=== PATIENT | female | born 1955 | race Caucasian/White ===

== ENCOUNTER 2016-12-05 14:01 | Emergency (ER) | payer OTHER ==
[~2016-12-05] VITALS: Ht 157.5 cm; Wt 56.7 kg
[~2016-12-05 14:01] MED LIST: DIAZ5TAB PO
[2016-12-05] MEDS ORDERED: FENTANYL PF 100 MCG/2 ML VIAL. IV ONE (14:30)
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
--- NOTE | 2016-12-05 15:10 | EKG ---
[facility] [address] [place] [address] Test Date: 2016-12-05 Test Time: 14:15:12 Pat Name: MARIELY WALTER Department: Room: Gender: F [employer] Supervisor: : 1955 Requested By: Tai CARROLL Order Number: [id number] Reading MD: Measurements Intervals [place] Rate: 90 P: 52 WV: 180 QRS: 17 QRSD: 82 T: 41 QT: 376 QTc: 464 Interpretive Statements SINUS RHYTHM RI6.01 Unconfirmed report No previous ECG available for comparison
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
[2016-12-05] MEDS ORDERED: LIDOCAINE 1%/EPI 1:100,000 20 ML VIAL. IJ ONE (15:45)
[2016-12-05] MEDS ORDERED: KETOROLAC TROMETHAMINE 30 MG/ML SYRINGE. IV ONE (15:45)
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
[2016-12-05 16:30] VITALS: BP 129/73
== END 2016-12-05 16:47 | disposition home or self-care (01) ==
LOC: ER 14:01
DX: S01.511A Laceration without foreign body of lip, initial encounter (principal); S09.90XA Unspecified injury of head, initial encounter; S02.401A Maxillary fracture, unspecified side, initial encounter for closed fracture; R04.0 Epistaxis; M25.561 Pain in right knee; M25.562 Pain in left knee; F17.210 Nicotine dependence, cigarettes, uncomplicated; F15.10 Other stimulant abuse, uncomplicated; V47.5XXA Car driver injured in collision with fixed or stationary object in traffic accident, initial encounter; Y93.I9 Activity, other involving external motion; Y92.410 Unspecified street and highway as the place of occurrence of the external cause; Y99.8 Other external cause status
CPT/HCPCS: 12013; 70450; 70486; 73564; 93005; 96374; 96375; 99284; J1885; J3010; J3490

== ENCOUNTER 2019-09-07 05:37 | Emergency (ER) | payer SELFPAY ==
[~2019-09-07] VITALS: Ht 157.5 cm; Wt 50.3 kg
[~2019-09-07 05:37] MED LIST changes: +ALBU2.5V8 IH; +AMOX1TAB11 PO; +ASPI325T8 PO; +ATOR10TA60 PO; +BENZ100C PO; +CARV3.123 PO; +GUAI120L35 PO; +LISI-338 PO; +METO-239 PO
--- NOTE | 2019-09-07 06:17 | PHYS DOC ---
Past Medical History Past Medical History: CHF Past Surgical History: Tubal ligation, Other Additional Past Surgical Histo: ANKLE SURGERY Alcohol Use: None Drug Use: None Adult General Chief Complaint Chief Complaint: ABDOMINAL PAIN HPI HPI Patient is a 64 year old female patient with history of CHF, dyslipidemia and hypertension who presents with pain of abdominal pain. Patient complaining of right lower quadrant pain since yesterday afternoon as a constant and sharp pain with radiation. Cardiac arrhythmia associated nausea and anorexia. Patient denies fever and chills, diarrhea and constipation, urinary symptom. Patient stated the pain getting better with passing gas and had a bowel movement this morning with improvement of the pain. Patient rated her pain 6/10. Patient states she has had intermittent episodes of the same pain for 1 year. Review of Systems Review of Systems Constitutional: Denies fever or chills [] Eyes: Denies change in visual acuity, redness, or eye pain [] HENT: Denies nasal congestion or sore throat [] Respiratory: Denies cough or shortness of breath [] Cardiovascular: No additional information not addressed in HPI [] GI: Reports abdominal pain, nausea, denies vomiting, bloody stools or diarrhea [] : Denies dysuria or hematuria [] Musculoskeletal: Denies back pain or joint pain [] Integument: Denies rash or skin lesions [] Neurologic: Denies headache, focal weakness or sensory changes [] Endocrine: Denies polyuria or polydipsia [] All other systems were reviewed and found to be within normal limits, except as documented in this note. Current Medications Current Medications Current Medications Medications (Trade) Dose Ordered Sig/[facility] Start Time Stop Time Status Last Admin Dose Admin Fentanyl Citrate (Fentanyl 2ml Vial) 50 mcg 1X ONCE 09/07/19 07:15 09/07/19 07:16 DC Ketorolac Tromethamine (Toradol 30mg Vial) 30 mg 1X ONCE 09/07/19 06:30 09/07/19 06:31 DC 09/07/19 06:34 30 MG Ondansetron HCl (Zofran) 4 mg 1X ONCE 09/07/19 06:30 09/07/19 06:31 DC 09/07/19 06:34 4 MG Sodium Chloride 500 ml @ 500 mls/hr 1X ONCE 09/07/19 06:30 09/07/19 07:29 DC 09/07/19 06:35 500 MLS/HR Allergies Allergies Allergies Coded Allergies Type Severity Reaction Last Updated Verified No Known Drug Allergies 10/15/13 No Physical Exam Physical Exam Constitutional: Well developed, well nourished, mild distress, non-toxic appearance. [] HENT: Normocephalic, atraumatic, dry oral mucosa Eyes: PERRLA, EOMI, conjunctiva normal, no discharge. [] Neck: Normal range of motion, no tenderness, supple, no stridor. [] Cardiovascular:Heart rate regular rhythm, systolic murmur [] Lungs & Thorax: Bilateral breath sounds clear to auscultation [] Abdomen: Bowel sounds normal, soft, no tenderness, no masses, no pulsatile masses. [] Skin: Warm, dry, no erythema, no rash. [] Back: No tenderness, no CVA tenderness. [] Extremities: No tenderness, no cyanosis, no clubbing, ROM intact, no edema. [] Neurologic: Alert and oriented X 3, no focal deficits noted. [] Psychologic: Affect normal, judgement normal, mood normal. [] Current Patient Data Vital Signs Vital Signs Date Time Temp Pulse Resp B/P (MAP) Pulse Ox O2 Delivery O2 Flow Rate FiO2 09/07/19 08:15 69 16 107/70 (82) 98 Room Air 09/07/19 05:50 98.0 98.0 Lab Values Laboratory Tests Test 09/07/19 05:43 09/07/19 05:55 09/07/19 07:05 Urine Collection Type Void Urine Color Yellow Urine Clarity Clear Urine pH 5.0 Urine Specific [place] >=1.030 Urine Protein Negative mg/dL (NEG-TRACE) Urine Glucose (UA) Negative mg/dL (NEG) Urine Ketones (Stick) Negative mg/dL (NEG) Urine Blood Negative (NEG) Urine Nitrite Negative (NEG) Urine Bilirubin Negative (NEG) Urine Urobilinogen Dipstick 0.2 mg/dL (0.2 mg/dL) Urine Leukocyte Esterase Negative (NEG) Urine RBC 0 /HPF (0-2) Urine WBC 1-4 /HPF (0-4) Urine Squamous Epithelial Cells Many /LPF Urine Bacteria Few /HPF (0-FEW) Urine Hyaline Casts Many /HPF Urine Mucus Mod /LPF Urine Opiates Screen Neg (NEG) Urine Methadone Screen Neg (NEG) Urine Barbiturates Neg (NEG) Urine Phencyclidine Screen Neg (NEG) Urine Amphetamine/Methamphetamine Neg (NEG) Urine Benzodiazepines Screen Neg (NEG) Urine Cocaine Screen Neg (NEG) Urine Cannabinoids Screen Pos (NEG) Urine Ethyl Alcohol Neg (NEG) White Blood Count 13.3 x10^3/uL (4.0-11.0) H Red Blood Count 4.57 x10^6/uL (3.50-5.40) Hemoglobin 13.2 g/dL (12.0-15.5) Hematocrit 39.8 % (36.0-47.0) Mean Corpuscular Volume 87 fL (79-100) Mean Corpuscular Hemoglobin 29 pg (25-35) Mean Corpuscular Hemoglobin Concent 33 g/dL (31-37) Red Cell Distribution Width 13.7 % (11.5-14.5) Platelet Count 378 x10^3/uL (140-400) Neutrophils (%) (Auto) 74 % (31-73) H Lymphocytes (%) (Auto) 17 % (24-48) L Monocytes (%) (Auto) 6 % (0-9) Eosinophils (%) (Auto) 2 % (0-3) Basophils (%) (Auto) 1 % (0-3) Neutrophils # (Auto) 9.8 x10^3/uL (1.8-7.7) H Lymphocytes # (Auto) 2.3 x10^3/uL (1.0-4.8) Monocytes # (Auto) 0.8 x10^3/uL (0.0-1.1) Eosinophils # (Auto) 0.3 x10^3/uL (0.0-0.7) Basophils # (Auto) 0.1 x10^3/uL (0.0-0.2) Prothrombin Time 12.5 SEC (11.7-14.0) Prothrombin Time INR 1.0 (0.8-1.1) Sodium Level 139 mmol/L (136-145) Potassium Level 4.4 mmol/L (3.5-5.1) Chloride Level 105 mmol/L (98-107) Carbon Dioxide Level 27 mmol/L (21-32) Anion Gap 7 (6-14) Blood Urea Nitrogen 41 mg/dL (7-20) H Creatinine 1.1 mg/dL (0.6-1.0) H Estimated GFR (Cockcroft-Gault) 50.3 BUN/Creatinine Ratio 37 (6-20) H Glucose Level 100 mg/dL (70-99) H Calcium Level 8.3 mg/dL (8.5-10.1) L Total Bilirubin 0.4 mg/dL (0.2-1.0) Aspartate Amino Transferase (AST) 52 U/L (15-37) H Alanine Aminotransferase (ALT) 75 U/L (14-59) H Alkaline Phosphatase 59 U/L (46-116) Creatine Kinase 39 U/L (26-192) Total Protein 6.7 g/dL (6.4-8.2) Albumin 3.3 g/dL (3.4-5.0) L Albumin/Globulin Ratio 1.0 (1.0-1.7) Lipase 275 U/L (73-393) Laboratory Tests 09/07/19 05:55 Laboratory Tests 09/07/19 07:05 EKG EKG [] Radiology/Procedures Radiology/Procedures [][facility] [address] [place] [address] IMAGING REPORT Signed PATIENT: MARIELY WALTER ACCOUNT: [id number] : 1955 LOCATION: ER AGE: 64 SEX: F EXAM STATUS: REG ER ORD. PHYSICIAN: KADEEM MONTELONGO MD REASON: right lower quadrant pain PROCEDURE: CT ABDOMEN PELVIS WO CONTRAST Examination: CT of the abdomen pelvis without contrast HISTORY: History of right lower quadrant abdominal pain COMPARISON: None available TECHNIQUE: Axial CT images of the abdomen pelvis were performed without contrast. Coronal and sagittal reformats are performed Exposure: One or more of the following individualized dose reduction techniques were utilized for this examination: 1. Automated exposure control 2. Adjustment of the mA and/or kV according to patient size 3. Use of iterative reconstruction technique FINDINGS: The bibasilar lungs are clear. No evidence of free air identified in the abdomen. The evaluation of the solid organs is limited due to lack of IV contrast. The evaluation of bowel is limited due to lack of oral contrast. The noncontrasted liver, spleen, adrenals grossly appears unremarkable. The gallbladder is mildly distended. The stomach is mildly distended. The visualized pancreas grossly appears unremarkable The small bowel is nondilated. The appendix appears unremarkable. Feces and gas identified in the colon Few sigmoid colon diverticulosis identified. There is mild thickened appearance of the wall of the sigmoid colon. Enlarged appearing cystic structures identified in the adnexa the largest measuring 6.1 cm on the right probably right ovarian cyst or cystic lesion. No evidence of intrarenal collecting system calculi or hydronephrosis Moderate degenerative changes lumbar spine. IMPRESSION: 1. Enlarged cystic structures identified in the adnexa the largest measuring 6.1 cm on the right probably right ovarian cyst or cystic lesion. Recommend ultrasound pelvis. 2. Mild thickened appearance of the wall of the sigmoid colon could be mild colitis or nondistention. 3. Sigmoid colon diverticulosis. Electronically signed by: Matthew Keller MD (09/07/2019 6:41 AM) [facility] DICTATED and SIGNED BY: MATTHEW KELLER MD DATE: 09/07/19 0641 [facility] [address] [place] [address] IMAGING REPORT Signed PATIENT: MARIELY WALTER ACCOUNT: [id number] : 1955 LOCATION: ER AGE: 64 SEX: F EXAM STATUS: REG ER ORD. PHYSICIAN: KADEEM MONTELONGO MD REASON: right lower quadrant pain, cystic lesion in CT PROCEDURE: PELVIS COMPLETE STUDY: US PELVIS COMPLETE HISTORY: Right lower quadrant pain. Follow-up cystic lesion seen by CT. COMPARISON: CT abdomen/pelvis 09/07/2019. TECHNIQUE: Complete pelvic ultrasound was performed with a transvaginal probe. FINDINGS: The uterus measures 5.9 x 4.0 x 3.6 cm. The endometrium is measured at 0.6 cm. The right ovary is enlarged by the presence of multiple cystic foci and collectively measures approximately 6.8 x 4.9 x 3.5 cm. The dominant cystic focus within the right ovary is well seen on image 16 and collectively measures 4.2 x 3.7 x 3.5 cm. This cyst is complex with a daughter cyst. The wall of the daughter cysts is measured at approximately 2 mm and there is a thin papillary projection. Several additional right ovarian cysts which are difficult to distinguish from individual cysts versus septated cysts. Doppler flow to the right ovary is maintained. Small cystic focus within the uterus measured at up to 0.6 cm. The left ovary is also enlarged by the presence of multiple cysts and measures 4.4 x 2.9 cm. Again it is difficult to distinguish closely adjacent cysts versus septated cysts. Doppler flow to the left ovary is maintained. No free fluid seen within the pelvis. IMPRESSION: 1. Enlargement of the right more so than left ovaries with the ovaries essentially replaced by numerous cystic foci. Normal Doppler flow is maintained to both ovaries. The largest cyst on the right contains a daughter cyst and collectively measures up to 4.2 x 3.7 x 3.5 cm. The size and number of the cysts as well as some of the cyst features are atypical given patient age and postmenopausal state. Recommend correlation for any clinical history that would suggest a hormonal etiology. Eventual gynecologic consultation is needed as well as short-term follow-up as an ovarian cystic neoplasm is not excluded. 2. Mildly thickened endometrium at 0.6 cm without a discrete mass as well as a small uterine cystic focus measured at 0.6 cm. Attention on follow-up as well. Electronically signed by: MIRANDA BOUCHER MD (09/07/2019 8:04 AM) [facility] [place] DICTATED and SIGNED BY: MIRANDA BOUCHER MD DATE: 09/07/19803 Course & Med Decision Making Course & Med Decision Making Pertinent Labs and Imaging studies reviewed. (See chart for details) Evaluation of patient in ER showed 64-year-old female patient with complaining of intermittent episodes of lower abdominal for 1 years that getting worse for the last few days. Patient had multiple bilateral ovarian cyst with concern for possible malignancy. Patient was advised follow-up with on-call STE[facility]SC[facility] OPERATOR. I've spoken with the patient and/or caregivers. I've explained the patient's condition, diagnosis and treatment plan based on information available to me at this time. I've answered the patient's and/or caregivers questions and addressed any concerns. The patient and/or caregivers have a good understanding the patient's diagnosis, condition and treatment plan as can be expected at this point. Vital signs have been stabilized. The patient's condition is stable for discharge from the emergency department. The patient will pursue further outpatient evaluation with her primary care provider or other designated consulting physician as outlined in the discharge instructions. Patient and/or caregivers are agreeable to this plan of care and follow-up instructions have been explained in detail. The patient and/or caregivers have received these instructions in written format and expressed understanding of these discharge instructions. The patient and her caregivers are aware that if any significant change in condition or worsening of symptoms should prompt him to immediately return to this of the closest emergency department. If an emergent department is not readily available I would encourage him to call 911. Dragon Disclaimer Dragon Disclaimer This electronic medical record was generated, in whole or in part, using a voice recognition dictation system. Departure Departure Impression: Primary Impression: Ovarian cyst Additional Impressions: Right lower quadrant pain Chronic renal insufficiency Elevated liver function tests Disposition: HOME, SELF-CARE (at 0817) Condition: IMPROVED Referrals: NO PCP (PCP) CORY ROMO Jr, MD Patient Instructions: Ovarian Cyst, Smoking Cessation, Tips For Success Additional Instructions: Follow-up with RANCH MANAGER in 2 or 3 days regarding bilateral ovarian cysts Follow-up with your primary care physician in 3-5 days Return to ER if not getting better Scripts Hydrocodone/Apap 5-325 (NORCO 5-325 TABLET) 1 Each Tablet 1 TAB PO PRN Q6HRS PRN for PAIN, #14 TAB 0 Refills Prov: KADEEM MONTELONGO MD 09/07/19 Problem Qualifiers Primary Impression: Ovarian cyst Laterality: bilateral Qualified Codes: N83.201 - Unspecified ovarian cyst, right side; N83.202 - Unspecified ovarian cyst, left side Additional Impressions: Chronic renal insufficiency Chronic kidney disease stage: unspecified stage Qualified Codes: N18.9 - Chronic kidney disease, unspecified KADEEM MONTELONGO MD Sep 07, 2019 06:17
[2019-09-07 06:26] LABS: BASO # 0.1 x10^3/uL (0.0-0.2); BASO % 1 % (0-3); EOS # 0.3 x10^3/uL (0.0-0.7); EOS % 2 % (0-3); HEMATOCRIT 39.8 % (36.0-47.0); HEMOGLOBIN 13.2 g/dL (12.0-15.5); LYMPH # 2.3 x10^3/uL (1.0-4.8); LYMPH % 17 % (24-48); MEAN CORPUSCULAR HEMOGLOBIN 29 pg (25-35); MEAN CORPUSCULAR HGB CONC 33 g/dL (31-37); MEAN CORPUSCULAR VOLUME 87 fL (79-100); MONO # 0.8 x10^3/uL (0.0-1.1); MONO % 6 % (0-9); NEUT # 9.8 x10^3/uL (1.8-7.7); NEUT % 74 % (31-73); PLATELET COUNT 378 x10^3/uL (140-400); RED BLOOD COUNT 4.57 x10^6/uL (3.50-5.40); RED CELL DISTRIBUTION WIDTH 13.7 % (11.5-14.5); WHITE BLOOD COUNT 13.3 x10^3/uL (4.0-11.0)
[2019-09-07 06:27] LABS: BILIRUBIN,URINE NEGATIVE (NEG); CLARITY,URINE CLEAR; COLOR,URINE YELLOW; NITRITE,URINE NEGATIVE (NEG); PROTEIN,URINE NEGATIVE (NEG-TRACE); UROBILINOGEN,URINE 0.2 mg/dL (0.2 mg/dL)
[2019-09-07] MEDS ORDERED: KETOROLAC 30 MG/ML VIAL. IV ONE (06:30)
[2019-09-07] MEDS ORDERED: ONDANSETRON PF 4 MG/2 ML VIAL. IV ONE (06:30)
[2019-09-07] MEDS ORDERED: IV NORMAL SALINE 500ML BAG 500 ML IV ONE (06:30)
[2019-09-07 06:31] LABS: PROTHROMBIN TIME PATIENT 12.5 SEC (11.7-14.0)
[2019-09-07 06:35] LABS: BARBITURATES NEG (NEG); BENZODIAZEPINES NEG (NEG); CANNABINOIDS POS (NEG); COCAINE NEG (NEG); METHADONE NEG (NEG); OPIATES NEG (NEG); PHENCYCLIDINE NEG (NEG)
[2019-09-07 06:40] LABS: AMPHETAMINE/METHAMPHETAMINE NEG (NEG); BACTERIA,URINE FEW /HPF (0-FEW); HYALINE CASTS, URINE MANY /HPF; RBC,URINE 0 /HPF (0-2); SQUAMOUS EPITHELIAL CELL,UR MANY /LPF
--- NOTE | 2019-09-07 06:44 | RAD ---
Examination: CT of the abdomen pelvis without contrast HISTORY: History of right lower quadrant abdominal pain COMPARISON: None available TECHNIQUE: Axial CT images of the abdomen pelvis were performed without contrast. Coronal and sagittal reformats are performed Exposure: One or more of the following individualized dose reduction techniques were utilized for this examination: 1. Automated exposure control 2. Adjustment of the mA and/or kV according to patient size 3. Use of iterative reconstruction technique FINDINGS: The bibasilar lungs are clear. No evidence of free air identified in the abdomen. The evaluation of the solid organs is limited due to lack of IV contrast. The evaluation of bowel is limited due to lack of oral contrast. The noncontrasted liver, spleen, adrenals grossly appears unremarkable. The gallbladder is mildly distended. The stomach is mildly distended. The visualized pancreas grossly appears unremarkable The small bowel is nondilated. The appendix appears unremarkable. Feces and gas identified in the colon Few sigmoid colon diverticulosis identified. There is mild thickened appearance of the wall of the sigmoid colon. Enlarged appearing cystic structures identified in the adnexa the largest measuring 6.1 cm on the right probably right ovarian cyst or cystic lesion. No evidence of intrarenal collecting system calculi or hydronephrosis Moderate degenerative changes lumbar spine. IMPRESSION: 1. Enlarged cystic structures identified in the adnexa the largest measuring 6.1 cm on the right probably right ovarian cyst or cystic lesion. Recommend ultrasound pelvis. 2. Mild thickened appearance of the wall of the sigmoid colon could be mild colitis or nondistention. 3. Sigmoid colon diverticulosis. Electronically signed by: Matthew Keller MD (09/07/2019 6:41 AM) [id number]
[2019-09-07] MEDS ORDERED: fentaNYL PF VIAL 100 MCG/2 ML VIAL IVP ONE (07:15)
[2019-09-07 07:23] LABS: CALCIUM 8.3 mg/dL (8.5-10.1); CREATININE 1.1 mg/dL (0.6-1.0); GFR 50.3; POTASSIUM 4.4 mmol/L (3.5-5.1)
[2019-09-07 07:29] LABS: ALBUMIN 3.3 g/dL (3.4-5.0); TOTAL BILIRUBIN 0.4 mg/dL (0.2-1.0); TOTAL PROTEIN 6.7 g/dL (6.4-8.2)
--- NOTE | 2019-09-07 08:07 | RAD ---
STUDY: US PELVIS COMPLETE HISTORY: Right lower quadrant pain. Follow-up cystic lesion seen by CT. COMPARISON: CT abdomen/pelvis 09/07/2019. TECHNIQUE: Complete pelvic ultrasound was performed with a transvaginal probe. FINDINGS: The uterus measures 5.9 x 4.0 x 3.6 cm. The endometrium is measured at 0.6 cm. The right ovary is enlarged by the presence of multiple cystic foci and collectively measures approximately 6.8 x 4.9 x 3.5 cm. The dominant cystic focus within the right ovary is well seen on image 16 and collectively measures 4.2 x 3.7 x 3.5 cm. This cyst is complex with a daughter cyst. The wall of the daughter cysts is measured at approximately 2 mm and there is a thin papillary projection. Several additional right ovarian cysts which are difficult to distinguish from individual cysts versus septated cysts. Doppler flow to the right ovary is maintained. Small cystic focus within the uterus measured at up to 0.6 cm. The left ovary is also enlarged by the presence of multiple cysts and measures 4.4 x 2.9 cm. Again it is difficult to distinguish closely adjacent cysts versus septated cysts. Doppler flow to the left ovary is maintained. No free fluid seen within the pelvis. IMPRESSION: 1. Enlargement of the right more so than left ovaries with the ovaries essentially replaced by numerous cystic foci. Normal Doppler flow is maintained to both ovaries. The largest cyst on the right contains a daughter cyst and collectively measures up to 4.2 x 3.7 x 3.5 cm. The size and number of the cysts as well as some of the cyst features are atypical given patient age and postmenopausal state. Recommend correlation for any clinical history that would suggest a hormonal etiology. Eventual gynecologic consultation is needed as well as short-term follow-up as an ovarian cystic neoplasm is not excluded. 2. Mildly thickened endometrium at 0.6 cm without a discrete mass as well as a small uterine cystic focus measured at 0.6 cm. Attention on follow-up as well. Electronically signed by: MIRANDA BOUCHER MD (09/07/2019 8:04 AM) [facility]
[2019-09-07 08:15] VITALS: BP 107/70
[2019-09-07] MEDS ORDERED: HYDR-3164 PO (08:19)
== END 2019-09-07 08:40 | disposition home or self-care (01) ==
LOC: ER 05:37
DX: N83.202 Unspecified ovarian cyst, left side (principal); N83.201 Unspecified ovarian cyst, right side; R10.31 Right lower quadrant pain; I13.0 Hypertensive heart and chronic kidney disease with heart failure and stage 1 through stage 4 chronic kidney disease, or unspecified chronic kidney disease; I50.9 Heart failure, unspecified; E78.5 Hyperlipidemia, unspecified; R79.89 Other specified abnormal findings of blood chemistry; Z98.51 Tubal ligation status; Z98.890 Other specified postprocedural states
CPT/HCPCS: 36415; 74176; 76856; 80053; 80307; 81001; 82550; 83690; 85025; 85610; 96374; 96375; 99285; J1885; J2405; J7040

== ENCOUNTER 2020-10-27 13:30 | Emergency (ER) | payer SELFPAY ==
[~2020-10-27] VITALS: Ht 157.5 cm; Wt 54.5 kg
[~2020-10-27 13:30] MED LIST changes: +HYDR-3164 PO
--- NOTE | 2020-10-27 14:09 | EKG ---
[facility] [address] [place] [address] Test Date: 2020-10-27 Test Time: 13:43:45 Pat Name: MARIELY WALTER Department: Room: Gender: F Social Media Assistant: : 1955 Requested By: JESSE CHEN Order Number: [id number] Reading MD: Measurements Intervals [place] Rate: 81 P: 52 DE: 164 QRS: -7 QRSD: 160 T: 156 QT: 442 QTc: 520 Interpretive Statements SINUS RHYTHM LEFT ATRIAL ABNORMALITY LEFTWARD AXIS LEFT BUNDLE BRANCH BLOCK ABNORMAL ECG RI6.02 No previous ECG available for comparison
[2020-10-27 14:10] LABS: BASO # 0.1 x10^3/uL (0.0-0.2); BASO % 1 % (0-3); EOS # 0.2 x10^3/uL (0.0-0.7); EOS % 2 % (0-3); HEMATOCRIT 36.9 % (36.0-47.0); HEMOGLOBIN 12.3 g/dL (12.0-15.5); LYMPH # 1.9 x10^3/uL (1.0-4.8); LYMPH % 18 % (24-48); MEAN CORPUSCULAR HEMOGLOBIN 29 pg (25-35); MEAN CORPUSCULAR HGB CONC 33 g/dL (31-37); MEAN CORPUSCULAR VOLUME 87 fL (79-100); MONO # 0.6 x10^3/uL (0.0-1.1); MONO % 5 % (0-9); NEUT # 8.2 x10^3/uL (1.8-7.7); NEUT % 75 % (31-73); PLATELET COUNT 404 x10^3/uL (140-400); RED BLOOD COUNT 4.27 x10^6/uL (3.50-5.40); RED CELL DISTRIBUTION WIDTH 13.5 % (11.5-14.5); WHITE BLOOD COUNT 10.9 x10^3/uL (4.0-11.0)
[2020-10-27 14:22] LABS: CREATININE 0.8 mg/dL (0.6-1.0); GFR 72.4; POTASSIUM 4.1 mmol/L (3.5-5.1)
--- NOTE | 2020-10-27 14:22 | RAD ---
Single view of the chest. 10/27/2020 2:01 PM Indication: Reason: SOA / Spl. Instructions: / History: Comparison: Chest radiograph August 23, 2019 Findings no pneumothorax, or pleural effusion is seen. The heart is enlarged, minimally increased in the interim since comparison study. There is diffuse interstitial thickening without focal infiltrate . Similar prior exam. The appearance favors chronic interstitial lung disease with edema or an atypic al infectious process being secondary considerations. An acute osseous changes not identified. IMPRESSION: 1. Chronic interstitial thickening,, most likely felt to be chronic interstitial lung disease. Edema or an atypical/viral infectious process would be secondary considerations. 2. Cardiomegaly, slightly increased in the interim Electronically signed by: Delmar Benedict MD (10/27/2020 2:19 PM) [id number]
[2020-10-27 14:28] LABS: ALBUMIN 3.5 g/dL (3.4-5.0); ALBUMIN/GLOBULIN RATIO 0.9 (1.0-1.7); TOTAL BILIRUBIN 0.7 mg/dL (0.2-1.0); TOTAL PROTEIN 7.6 g/dL (6.4-8.2)
[2020-10-27 14:53] LABS: BILIRUBIN,URINE NEGATIVE (NEG); CLARITY,URINE CLEAR; COLOR,URINE YELLOW; NITRITE,URINE NEGATIVE (NEG); PROTEIN,URINE NEGATIVE (NEG-TRACE); UROBILINOGEN,URINE 0.2 mg/dL (0.2 mg/dL)
[2020-10-27 14:59] LABS: AMPHETAMINE/METHAMPHETAMINE POS (NEG); BARBITURATES NEG (NEG); BENZODIAZEPINES NEG (NEG); CANNABINOIDS NEG (NEG); COCAINE NEG (NEG); METHADONE NEG (NEG); OPIATES NEG (NEG); PHENCYCLIDINE NEG (NEG)
[2020-10-27 15:08] LABS: BACTERIA,URINE 0 /HPF (0-FEW); RBC,URINE 0 /HPF (0-2); WBC,URINE 0 /HPF (0-4)
[2020-10-27 16:11] VITALS: BP 111/71
--- NOTE | 2020-10-27 16:28 | PHYS DOC ---
Past Medical History Past Medical History: CHF, Hypertension Additional Past Medical Histor: LBBB, EMPHYSEMA Past Surgical History: Tubal ligation, Other Additional Past Surgical Histo: ANKLE SURGERY Smoking Status: Current Every Day Smoker Alcohol Use: None Drug Use: Marijuana, Methamphetamine Social History Narrative: LAST USED YESTERDAY General Adult EDM: Chief Complaint: SHORTNESS OF BREATH HPI: HPI: Patient is a 65 year old female with history of hypertension, CHF, who presents the ED today with multiple complaints. Patient is complaining of productive cough, symptoms for 5 days. Denies any fever. Patient is also complaining of 6 out of 10 substernal chest pain nonradiating in nature, describes this chest pain as heaviness, symptoms began this morning. She is complaining of associated symptoms of dizziness and diaphoresis. She states she took 1 nitroglycerin which relieved her symptoms. Patient reports she is a current smoker, she also reports methamphetamine use, last use was yesterday. Review of Systems: Review of Systems: Constitutional: Denies fever or chills. [] Eyes: Denies change in visual acuity. [] HENT: Denies nasal congestion or sore throat. [] Respiratory: Reports cough and shortness of breath. [] Cardiovascular: Reports chest pain GI: Denies abdominal pain, nausea, vomiting, bloody stools or diarrhea. [] : Denies dysuria. [] Musculoskeletal: Denies back pain or joint pain. [] Integument: Denies rash. [] Neurologic: Denies headache, focal weakness or sensory changes. [] Psychiatric: Denies depression or anxiety. [] Heart Score: HEART Score for Chest Pain: HEART Score for Chest Pain Response (Comments) Value History Slighlty/Non-Suspicious 0 ECG Normal 0 Age >45 - < 65 1 Risk Factors 1 or 2 Risk Factors 1 Troponin < Normal Limit 0 Total 2 Risk Factors: Risk Factors: DM, Current or recent (<one month) smoker, HTN, HLP, family history of CAD, obesity. Risk Scores: Score 0 - 3: 2.5% MACE over next 6 weeks - Discharge Home Score 4 - 6: 20.3% MACE over next 6 weeks - Admit for Clinical Observation Score 7 - 10: 72.7% MACE over next 6 weeks - Early Invasive Strategies Allergies: Allergies: Allergies Coded Allergies Type Severity Reaction Last Updated Verified No Known Drug Allergies 10/15/13 No Physical Exam: PE: Constitutional: Well developed, well nourished, no acute distress, non-toxic appearance. [] HENT: Normocephalic, atraumatic, bilateral external ears normal, oropharynx moist, no oral exudates, nose normal. [] Eyes: PERRLA, EOMI, conjunctiva normal, no discharge. [] Neck: Normal range of motion, no tenderness, supple, no stridor. [] Cardiovascular:Heart rate regular rhythm, no murmur [] Lungs & Thorax: Bilateral breath sounds clear to auscultation [] Abdomen: Bowel sounds normal, soft, no tenderness, no masses, no pulsatile masses. [] Skin: Warm, dry, no erythema, no rash. [] Back: No tenderness, no CVA tenderness. [] Extremities: No tenderness, no cyanosis, no clubbing, ROM intact, no edema. [] Neurologic: Alert and oriented X 3, normal motor function, normal sensory function, no focal deficits noted. Cranial nerves II through XII intact Psychologic: Flat affect Current Patient Data: Labs: Laboratory Tests Test 10/27/20 13:45 10/27/20 14:40 White Blood Count 10.9 x10^3/uL (4.0-11.0) Red Blood Count 4.27 x10^6/uL (3.50-5.40) Hemoglobin 12.3 g/dL (12.0-15.5) Hematocrit 36.9 % (36.0-47.0) Mean Corpuscular Volume 87 fL (79-100) Mean Corpuscular Hemoglobin 29 pg (25-35) Mean Corpuscular Hemoglobin Concent 33 g/dL (31-37) Red Cell Distribution Width 13.5 % (11.5-14.5) Platelet Count 404 x10^3/uL (140-400) H Neutrophils (%) (Auto) 75 % (31-73) H Lymphocytes (%) (Auto) 18 % (24-48) L Monocytes (%) (Auto) 5 % (0-9) Eosinophils (%) (Auto) 2 % (0-3) Basophils (%) (Auto) 1 % (0-3) Neutrophils # (Auto) 8.2 x10^3/uL (1.8-7.7) H Lymphocytes # (Auto) 1.9 x10^3/uL (1.0-4.8) Monocytes # (Auto) 0.6 x10^3/uL (0.0-1.1) Eosinophils # (Auto) 0.2 x10^3/uL (0.0-0.7) Basophils # (Auto) 0.1 x10^3/uL (0.0-0.2) Prothrombin Time 14.0 SEC (11.7-14.0) Prothrombin Time INR 1.1 (0.8-1.1) Activated Partial Thromboplast Time 30 SEC (24-38) Sodium Level 139 mmol/L (136-145) Potassium Level 4.1 mmol/L (3.5-5.1) Chloride Level 103 mmol/L (98-107) Carbon Dioxide Level 24 mmol/L (21-32) Anion Gap 12 (6-14) Blood Urea Nitrogen 24 mg/dL (7-20) H Creatinine 0.8 mg/dL (0.6-1.0) Estimated GFR (Cockcroft-Gault) 72.4 BUN/Creatinine Ratio 30 (6-20) H Glucose Level 130 mg/dL (70-99) H Lactic Acid Level 0.9 mmol/L (0.4-2.0) Calcium Level 9.0 mg/dL (8.5-10.1) Magnesium Level 2.2 mg/dL (1.8-2.4) Total Bilirubin 0.7 mg/dL (0.2-1.0) Aspartate Amino Transferase (AST) 38 U/L (15-37) H Alanine Aminotransferase (ALT) 63 U/L (14-59) H Alkaline Phosphatase 87 U/L (46-116) Troponin I Quantitative < 0.017 ng/mL (0.000-0.055) Total Protein 7.6 g/dL (6.4-8.2) Albumin 3.5 g/dL (3.4-5.0) Albumin/Globulin Ratio 0.9 (1.0-1.7) L Procalcitonin < 0.10 ng/mL (0.00-0.10) Thyroid Stimulating Hormone (TSH) 0.794 uIU/mL (0.358-3.74) Ethyl Alcohol Level < 10 mg/dL (0-10) Urine Collection Type Unknown Urine Color Yellow Urine Clarity Clear Urine pH 5.0 (<5.0-8.0) Urine Specific [place] 1.025 (1.000-1.030) Urine Protein Negative mg/dL (NEG-TRACE) Urine Glucose (UA) Negative mg/dL (NEG) Urine Ketones (Stick) Negative mg/dL (NEG) Urine Blood Negative (NEG) Urine Nitrite Negative (NEG) Urine Bilirubin Negative (NEG) Urine Urobilinogen Dipstick 0.2 mg/dL (0.2 mg/dL) Urine Leukocyte Esterase Negative (NEG) Urine RBC 0 /HPF (0-2) Urine WBC 0 /HPF (0-4) Urine Squamous Epithelial Cells Few /LPF Urine Bacteria 0 /HPF (0-FEW) Urine Opiates Screen Neg (NEG) Urine Methadone Screen Neg (NEG) Urine Barbiturates Neg (NEG) Urine Phencyclidine Screen Neg (NEG) Urine Amphetamine/Methamphetamine Pos (NEG) Urine Benzodiazepines Screen Neg (NEG) Urine Cocaine Screen Neg (NEG) Urine Cannabinoids Screen Neg (NEG) Urine Ethyl Alcohol Neg (NEG) Laboratory Tests 10/27/20 13:45 Laboratory Tests 10/27/20 13:45 Vital Signs: Vital Signs Date Time Temp Pulse Resp B/P (MAP) Pulse Ox O2 Delivery O2 Flow Rate FiO2 10/27/20 13:41 97.3 85 22 132/86 (101) 96 Room Air 97.3 EKG: EKG: [] Radiology/Procedures: Radiology/Procedures: []PROCEDURE: PORTABLE CHEST 1V Single view of the chest. 10/27/2020 2:01 PM Indication: Reason: SOA / Spl. Instructions: / History: Comparison: Chest radiograph August 23, 2019 Findings no pneumothorax, or pleural effusion is seen. The heart is enlarged, minimally increased in the interim since comparison study. There is diffuse interstitial thickening without focal infiltrate. Similar prior exam. The appearance favors chronic interstitial lung disease with edema or an atypical infectious process being secondary considerations. An acute osseous changes not identified. IMPRESSION: 1. Chronic interstitial thickening,, most likely felt to be chronic interstitial lung disease. Edema or an atypical/viral infectious process would be secondary considerations. 2. Cardiomegaly, slightly increased in the interim Electronically signed by: Delmar Goetz MD (10/27/2020 2:19 PM) [id number] DICTATED and SIGNED BY: DELMAR GOETZ MD DATE: 10/27/20 [id number] 0 Course & Med Decision Making: Course & Med Decision Making Pertinent Labs and Imaging studies reviewed. (See chart for details) This is a 65-year-old female patient current smoker current methamphetamine user presenting today complaining of a cough for 5 days and substernal chest pain with dizziness and diaphoresis that began today. EKG is negative, troponin is normal, CBC CMP with no acute findings, chest x-ray noted for chronic interstitial changes. Informed patient we recommend admission to the hospital, she declined accepted to leave AMA, she is alert and oriented x4 and able to make her own decisions. She understands the risk of leaving including and disability. Dragon Disclaimer: DragApieron Disclaimer: This electronic medical record was generated, in whole or in part, using a voice recognition dictation system. Departure Departure Impression: Primary Impression: Chest pain Qualified Codes: R07.9 - Chest pain, unspecified Additional Impressions: Person under investigation for COVID-19 Cough Methamphetamine use Smoking addiction Disposition: AMA/ELOPED/LWBS Condition: STABLE Referrals: NO PCP (PCP) Scripts Benzonatate (TESSALON PERLE) 100 Mg Capsule 1 CAP PO TID, #30 CAP Prov: JESSE CHEN APRN 10/27/20 Prednisone (PREDNISONE) 50 Mg Tablet 1 TAB PO DAILY, #5 TAB Prov: JESSE CHEN APRN 10/27/20 Albuterol Sulfate (Proair Hfa) 8.5 Gm Hfa.aer.ad 2 PUFF IH PRN Q4-6HRS PRN for wheezing, #1 INHALER 1 Refill Prov: JESSE CHEN APRN 10/27/20 JESSE CHEN APRN Oct 27, 2020 16:28
[2020-10-27] MEDS ORDERED: PRED50TA PO (16:48)
[2020-10-27] MEDS ORDERED: BENZ100C PO (16:48)
[2020-10-27] MEDS ORDERED: ALBU2.5V8 IH (16:48)
== END 2020-10-27 16:45 | disposition left against medical advice (07) ==
LOC: ER 13:30
DX: R07.2 Precordial pain (principal); R05 Cough; F15.90 Other stimulant use, unspecified, uncomplicated; Z20.828 Contact with and (suspected) exposure to other viral communicable diseases; F17.200 Nicotine dependence, unspecified, uncomplicated; I11.0 Hypertensive heart disease with heart failure; I50.9 Heart failure, unspecified; Z98.51 Tubal ligation status
CPT/HCPCS: 36415; 71045; 80053; 80307; 81001; 83605; 83735; 84145; 84443; 84484; 85025; 85610; 85730; 87040; 93005; 99285; C9803; G0480; U0003

== ENCOUNTER 2020-12-06 10:42 | Inpatient (IN) | payer SELFPAY ==
[~2020-12-06] VITALS: Ht 157.5 cm; Wt 72.1 kg
[~2020-12-06 10:42] MED LIST changes: +DOXY100C2 PO; -LISI-338 PO; +LISI-517 PO; +PRED50TA PO
--- NOTE | 2020-12-06 11:17 | PHYS DOC ---
Past Medical History Past Medical History: CHF, Hypertension Additional Past Medical Histor: LBBB, EMPHYSEMA; Meth use Past Surgical History: Tubal ligation, Other Additional Past Surgical Histo: ANKLE SURGERY Smoking Status: Former Smoker Additional Information: quit 3 months ago Alcohol Use: None Drug Use: Marijuana, Methamphetamine General Adult EDM: Chief Complaint: SHORTNESS OF BREATH HPI: HPI: Patient is a 65 year old female with history of CHF hypertension methamphetamine abuse who presents with shortness of breath. Shortness of breath started last night. Worse with exertion. Patient reports she quit smoking 3 months ago. Denies history of COPD but is on inhalers. Does have a history of CHF. Takes 20 mg of Lasix daily. Patient was admitted to the hospital in November for pneumonia and COVID. She reports she finished antibiotics at home. She was feeling well until last night. She did use methamphetamine 4 days ago. Patient denies chest pain. She has had a nonproductive cough. No fever chills numbness weakness vomiting diarrhea constipation neck pain. Patient denies alcohol abuse. Patient reports comp liance with medications. Review of Systems: Review of Systems: Review of Systems: Constitutional: Denies fever or chills Eyes: Denies redness or eye pain HENT: Denies nasal congestion or sore throat Respiratory: Positive for cough and shortness of breath Cardiovascular: Denies chest pain or palpitations GI: denies abdominal pain and nausea, denies vomiting or diarrhea : Denies dysuria or hematuria Musculoskeletal: Denies back pain or joint pain Integument: Denies rash or skin lesions Neurologic: Denies headache, focal weakness or sensory changes Heart Score: C/O Chest Pain: No Risk Factors: Risk Factors: DM, Current or recent (<one month) smoker, HTN, HLP, family history of CAD, obesity. Risk Scores: Score 0 - 3: 2.5% MACE over next 6 weeks - Discharge Home Score 4 - 6: 20.3% MACE over next 6 weeks - Admit for Clinical Observation Score 7 - 10: 72.7% MACE over next 6 weeks - Early Invasive Strategies Allergies: Allergies: Allergies Coded Allergies Type Severity Reaction Last Updated Verified No Known Drug Allergies 10/15/13 No Physical Exam: PE: *GENERAL APPEARANCE: Awake and alert. Cooperative. No acute distress. Non toxic appearing. HEAD: Normocephalic. Atraumatic. EYES: EOM's grossly intact. Sclera anicteric. Conjunctiva clear ENT:. Airway patent. Mucous membranes moist. No trismus. Tolerating secretions. NECK: Supple. Trachea midline. HEART: Regular rate and rhythm. Radial pulses 2+. Good capillary refill. LUNGS: Respirations unlabored diminished breath sounds bilaterally. ABDOMEN: Soft. Non-tender. No guarding or rebound. No CVA tenderness. No palpable or pulsatile mass. EXTREMITIES: No acute deformities. No edema, erythema or calf tenderness. SKIN: Warm and dry. No rash. NEUROLOGICAL: Alert and oriented x3. No gross neurological deficits. Moves all 4 extremities spontaneously. PSYCHIATRIC: Normal mood. Current Patient Data: Vital Signs: Vital Signs Date Time Temp Pulse Resp B/P (MAP) Pulse Ox O2 Delivery O2 Flow Rate FiO2 12/06/20 10:50 98.9 100 24 124/82 (96) 95 Room Air 98.9 EKG: EKG: EKG interpretation shows sinus rhythm with ventricular rate of 96 bpm. MD interval 160 ms. Castration 154 ms. QTc 504 ms. Left bundle branch block noted. Compared to EKG on November 18, 2020 appears similar. Radiology/Procedures: Radiology/Procedures: [] PROCEDURE: CT ANGIOGRAPHY CHEST Study: CT CHEST WITH CONTRAST - PULMONARY ANGIOGRAM History: Shortness of breath, positive Covid Comparison: Chest radiograph same day Technique: Helical CT of the chest performed after the administration of 100 mL Omnipaque 350 intravenous contrast and timed for angiographic evaluation of the pulmonary arteries per PE protocol. Coronal and sagittal 3D MIP reformations were obtained. One or more of the following individualized dose reduction techniques were utilized for this examination: 1. Automated exposure control 2. Adjustment of the mA and/or kV according to patient size 3. Use of iterative reconstruction technique. Findings: Pulmonary Arteries: Contrast bolus is adequate. There is no acute pulmonary embolism. The main pulmonary artery is normal in caliber. Heart/Systemic Vasculature: The heart is mildly enlarged. No pericardial effusion. Thoracic aorta is normal in caliber. Unable to evaluate for aortic dissection due to phase of contrast. Mediastinum and genesis: There are multiple small mediastinal and hilar lymph nodes, nonspecific. Lungs: There is mild to moderate centrilobular emphysema. Mild interlobular septal thickening in the apices and bases. Mild diffuse groundglass attenuation. The airway blakely are thickened. There are small bilateral pleural effusions, greater on the right. Neck/Axilla/Body Wall: No axillary adenopathy. Visualized portion of thyroid gland is normal. Upper Abdomen: Unremarkable. Bones: No acute osseous abnormality. There is moderate degenerative joint disease of the thoracic spine. Moderate osteoarthrosis of both glenohumeral joints. IMPRESSION: 1. No acute pulmonary embolism. 2. Mild to moderate centrilobular emphysema. 3. Mild pulmonary edema and small bilateral pleural effusions. 4. Mild cardiomegaly. Electronically signed by: Rayna Ignacio MD (12/06/2020 12:35 PM) [id number] DICTATED and SIGNED BY: RAYNA IGNACIO MD DATE: 12/06/20 [id number] 0 PROCEDURE: PORTABLE CHEST 1V EXAM: Chest, single view. HISTORY: Shortness of breath. COMPARISON: 11/18/2020 FINDINGS: A frontal view of the chest is obtained. There has been slight interval decrease in diffuse right lung interstitial infiltrate. There is stable diffuse left lung interstitial infiltrate. There is no consult additional pleural fusion or pneumothorax. There is stable cardiomegaly. IMPRESSION: Decreased right and stable left diffuse lung interstitial infiltrate. Stable cardiomegaly. Electronically signed by: Mely Murphy MD (12/06/2020 11:55 AM) [id number] Course & Med Decision Making: Course & Med Decision Making Medical decision making: This is a 65-year-old female presents emergency department for shortness of breath. Started last night. Patient does have history of CHF. Upon arrival to the emergency department patient is 95% on room air. Blood pressure stable. Afebrile. While in the emergency department oxygen saturation dropped down to 80%. Patient was placed on 2 L of oxygen. Laboratory evaluation shows white blood cell count of 16. Troponin negative. BNP 8264. Electrolytes otherwise stable. Chest x-ray shows decreased right and stable left diffuse lung interstitial infiltrate. Stable cardiomegaly. CTA of the chest showed no pulmonary embolism. Emphysema. Mild pulmonary edema mild pleural effusion. Mild cardiomegaly. Patient was given a dose of antibiotics. She was given fluids Solu-Medrol DuoNeb. She was given a dose of Lasix. I feel patient symptoms are likely multifactorial. At this time based on patient's symptoms and findings will admit to the hospital for further observati on and evaluation. Spoke with patient. Agreeable to admission. They are aware of all labs and imaging. All questions answered and patient stable at time of admission. DICTATED and SIGNED BY: MELY MURPHY MD DATE: 12/06/20 [id number] 0 Mayi Disclaimer: Mayi Disclaimer: This electronic medical record was generated, in whole or in part, using a voice recognition dictation system. Departure Departure Impression: Primary Impression: Dyspnea Additional Impressions: CHF (congestive heart failure) COPD (chronic obstructive pulmonary disease) Methamphetamine use Disposition: ADMITTED INPT THIS HOSP Admitting Physician: HIMRosemarie (accepted by Dr. Fuentes at 1515. Agrees with plan. Will see patient. Will place cardiology and pulmonology consult per request. Patient stable at the time of admission.) Condition: LEFT WITHOUT BEING SEEN Referrals: NO PCP (PCP) SUSIE ARAIZA DO Dec 06, 2020 11:17
[2020-12-06] MEDS ORDERED: IOHEXOL 350 MG/ML 100 ML VIAL. IV ONE ×2 (11:30→12:15)
[2020-12-06] MEDS ORDERED: CONTRAST GIVEN. MC PRN (11:30)
[2020-12-06 11:44] LABS: BASO # 0.1 x10^3/uL (0.0-0.2); BASO % 1 % (0-3); EOS # 0.1 x10^3/uL (0.0-0.7); EOS % 1 % (0-3); HEMATOCRIT 33.7 % (36.0-47.0); HEMOGLOBIN 11.2 g/dL (12.0-15.5); LYMPH # 1.2 x10^3/uL (1.0-4.8); LYMPH % 7 % (24-48); MEAN CORPUSCULAR HEMOGLOBIN 29 pg (25-35); MEAN CORPUSCULAR HGB CONC 33 g/dL (31-37); MEAN CORPUSCULAR VOLUME 86 fL (79-100); MONO # 0.8 x10^3/uL (0.0-1.1); MONO % 5 % (0-9); NEUT # 13.8 x10^3/uL (1.8-7.7); NEUT % 86 % (31-73); PLATELET COUNT 323 x10^3/uL (140-400); RED BLOOD COUNT 3.91 x10^6/uL (3.50-5.40); RED CELL DISTRIBUTION WIDTH 14.1 % (11.5-14.5)
[2020-12-06] MEDS ORDERED: IV NORMAL SALINE 500ML BAG 500 ML IV ONE (11:45)
[2020-12-06] MEDS ORDERED: cefTRIAXone IV Push 1 GM VIAL. IVP ONE (11:45)
[2020-12-06 11:57] LABS: CALCIUM 8.4 mg/dL (8.5-10.1); CREATININE 0.8 mg/dL (0.6-1.0); GFR 72.4; POTASSIUM 4.1 mmol/L (3.5-5.1)
--- NOTE | 2020-12-06 11:57 | RAD ---
EXAM: Chest, single view. HISTORY: Shortness of breath. COMPARISON: 11/18/2020 FINDINGS: A frontal view of the chest is obtained. There has been slight interval decrease in diffuse right lung interstitial infiltrate. There is stable diffuse left lung interstitial infiltrate. There is no consult additional pleural fusion or pneumothorax. There is stable cardiomegaly. IMPRESSION: Decreased right and stable left diffuse lung interstitial infiltrate. Stable cardiomegaly . Electronically signed by: Mely Ornelas MD (12/06/2020 11:55 AM) [id number]
[2020-12-06 12:04] LABS: ALBUMIN 3.2 g/dL (3.4-5.0); ALBUMIN/GLOBULIN RATIO 0.8 (1.0-1.7); TOTAL BILIRUBIN 0.6 mg/dL (0.2-1.0)
--- NOTE | 2020-12-06 12:31 | EKG ---
[facility] [address] [place] [address] Test Date: 2020-12-06 Test Time: 11:15:49 Pat Name: MARIELY WALTER Department: Room: Gender: F Media Traffic Manager: : 1955 Requested By: SUSIE ARAIZA Order Number: [id number] Reading MD: Bahman Perdue MD Measurements Intervals [place] Rate: 96 P: 47 TN: 160 QRS: -3 QRSD: 154 T: 152 QT: 398 QTc: 504 Interpretive Statements SINUS RHYTHM LEFTWARD AXIS LEFT BUNDLE BRANCH BLOCK Electronically Signed On 12-07-2020 10:18:00 WAX MOLDER by Bahman Perdue MD
--- NOTE | 2020-12-06 12:37 | RAD ---
Study: CT CHEST WITH CONTRAST - PULMONARY ANGIOGRAM History: Shortness of breath, positive Covid Comparison: Chest radiograph same day Technique: Helical CT of the chest performed after the administration of 100 mL Omnipaque 350 intrav enous contrast and timed for angiographic evaluation of the pulmonary arteries per PE protocol. Coron al and sagittal 3D MIP reformations were obtained. One or more of the following individualized dose reduction techniques were utilized for this examinat ion: 1. Automated exposure control 2. Adjustment of the mA and/or kV according to patient size 3. Use of iterative reconstruction technique. Findings: Pulmonary Arteries: Contrast bolus is adequate. There is no acute pulmonary embolism. The main pulmon ct artery is normal in caliber. Heart/Systemic Vasculature: The heart is mildly enlarged. No pericardial effusion. Thoracic aorta is normal in caliber. Unable to evaluate for aortic dissection due to phase of contrast. Mediastinum and genesis: There are multiple small mediastinal and hilar lymph nodes, nonspecific. Lungs: There is mild to moderate centrilobular emphysema. Mild interlobular septal thickening in the apices and bases. Mild diffuse groundglass attenuation. The airway blakely are thickened. There are sma ll bilateral pleural effusions, greater on the right. Neck/Axilla/Body Wall: No axillary adenopathy. Visualized portion of thyroid gland is normal. Upper Abdomen: Unremarkable. Bones: No acute osseous abnormality. There is moderate degenerative joint disease of the thoracic spi ne. Moderate osteoarthrosis of both glenohumeral joints. IMPRESSION: 1. No acute pulmonary embolism. 2. Mild to moderate centrilobular emphysema. 3. Mild pulmonary edema and small bilateral pleural effusions. 4. Mild cardiomegaly. Electronically signed by: Rayna Ignacio MD (12/06/2020 12:35 PM) [id number]
[2020-12-06 12:43] LABS: % BASOS 1 % (0-3); % EOS 2 % (0-5); % LYMPHS 7 % (24-48); % MONOS 4 % (0-10); % SEGS 86 % (35-66); PLT ESTIMATE ADEQUATE (ADEQUATE)
[2020-12-06] MEDS ORDERED: FUROSEMIDE 40 MG TABLET. PO ONE (15:45)
[2020-12-06] MEDS ORDERED: IPRATRPIUM/ALBUTEROL 0.5/2.5MG 3 ML NEBU. NEB ONE (15:45)
[2020-12-06] MEDS ORDERED: methylPREDNISolone SOD SUCC PF 125 MG/2 ML VIAL. IV ONE (15:45)
[2020-12-06] MEDS ORDERED: FUROSEMIDE 20 MG/2 ML VIAL. IVP ONE (16:30)
--- NOTE | 2020-12-06 17:57 | HP ---
ADMIT DATE: 12/06/2020 CHIEF COMPLAINT: Shortness of breath, cough, recent COVID-19. HISTORY OF PRESENT ILLNESS: The patient is a pleasant 65-year-old female who is recovering from COVID-19. Basically now her disease is progressing again. She is short of breath. She has got a cough. She quit smoking 3 months ago. Rates her symptoms at 7/10. She tried increasing her home meds, but that is not helping. She was just discharged from the hospital in November after being treated for COVID and pneumonia. I discussed the case with ER physician. We are going to admit the patient and consult Pulmonary Medicine and Cardiology as she is also showing some signs of heart failure. PAST MEDICAL HISTORY: Recent COVID-19, CHF, hypertension, left bundle branch block, COPD, methamphetamine abuse, ankle surgery, tubal ligation, previous tobacco abuse, marijuana use. ALLERGIES: None. FAMILY HISTORY: Diabetes. SOCIAL HISTORY: She quit smoking and drinking and taking drugs. MEDICATIONS: Reviewed, please refer to the MRAD. REVIEW OF SYSTEMS: GENERAL: No history of weight change, weakness or fevers. SKIN: No bruising, hair changes or rashes. EYES: No blurred, double or loss of vision. NOSE AND THROAT: No history of nosebleeds, hoarseness or sore throat. HEART: No history of palpitations, chest pain or shortness of breath on exertion. LUNGS: The patient complains of shortness of breath and cough. GASTROINTESTINAL: Denies changes in appetite, nausea, vomiting, diarrhea or constipation. GENITOURINARY: No history of frequency, urgency, hesitancy or nocturia. NEUROLOGIC: She complains of weakness. PSYCHIATRIC: No history of panic, anxiety or depression. ENDOCRINE: No history of heat or cold intolerance, polyuria or polydipsia. EXTREMITIES: Denies muscle weakness, joint pain, pain on walking or stiffness. PHYSICAL EXAMINATION: VITALS: Within normal limits and are stable. GENERAL: No apparent distress. Alert and oriented. HEENT: Normal cephalic atraumatic, external auditory canals are patent EYES: Extraocular muscles are intact, pupils are equally round and reactive to light and accommodation MUSCULOSKELETAL: Well developed, well nourished, good range of motion ENDOCRINE: No thyromegaly was palpated LYMPHATICS: No cervical chain or axillary nodes were noted HEMATOPOIETIC: No bruising NECK: Supple, no JVD, no thyromegaly was noted. LUNGS: She has decreased breath sounds with crackles on the left. HEART: RRR, S1, S2 present. Peripheral pulses intact, no obvious murmurs were noted. ABDOMEN: Soft, nontender. Positive bowel sounds no organomegaly, normal bowel sounds. EXTREMITIES: Without any cyanosis, clubbing, or edema. Pedal pulses intact, Homans sign is negative. NEUROLOGIC: Normal speech, normal tone. A & O x3, moves all extremities, no obvious focal deficits. PSYCHIATRIC: Normal affect, normal mood. Stable. SKIN: No ulcerations or rashes, good skin turgor, no jaundice. VASCULAR: Good capillary refill, neurovascular bundle appears to be intact. LABORATORY DATA: White count 16, hemoglobin 11, platelets 323. Electrolytes are normal CT of the chest shows no acute pulmonary embolisms. There is some emphysema and edema and effusions and cardiomegaly. Chest x-ray shows decreased right and stable left diffuse lung interstitial infiltrate and stable cardiomegaly. ASSESSMENT AND PLAN: Respiratory failure, suspect multifactorial including recent viral pneumonia with COVID-19 and heart failure in a middle-aged female who also has the above noted comorbidities. The patient has been admitted. We will consult Pulmonary and Cardiology. We are given her IV Lasix, IV steroids, IV Rocephin, home meds, DVT prophylaxis. Full code. Cardiac monitoring. PROGNOSIS: Guarded. ROB AYALA DO DR: NANCY/goyo JOB#: [id number] / [id number]
[2020-12-06 19:00] VITALS: BP 116/75
[2020-12-06 22:45] VITALS: BP 94/50
[2020-12-06] MEDS ORDERED: ALBU2.5V8 IH (23:01)
[2020-12-06] MEDS: ATORVASTATIN CALCIUM 10 MG TABLET. PO SCH (23:27)
[2020-12-06] MEDS: BENZONATATE 100 MG CAPSULE. PO SCH (23:27)
[2020-12-07 02:49] VITALS: BP 107/62
[2020-12-07 07:00] VITALS: BP 104/56
[2020-12-07] MEDS ORDERED: ASPIRIN 325 MG TABLET PO SCH (08:00)
--- NOTE | 2020-12-07 08:28 | PDOC ---
PULMONARY PROGRESS NOTES DATE: 12/07/20 TIME: 08:28 Vitals Vital Signs Date Time Temp Pulse Resp B/P (MAP) Pulse Ox O2 Delivery O2 Flow Rate FiO2 12/07/20 07:00 98.6 73 16 104/56 (72) 96 Room Air 98.6 12/07/20 02:49 2.0 Lungs: Wheezing, Crackles Cardiovascular: S1, S2 Labs Laboratory Tests Test 12/06/20 11:27 White Blood Count 16.0 x10^3/uL (4.0-11.0) Red Blood Count 3.91 x10^6/uL (3.50-5.40) Hemoglobin 11.2 g/dL (12.0-15.5) Hematocrit 33.7 % (36.0-47.0) Mean Corpuscular Volume 86 fL (79-100) Mean Corpuscular Hemoglobin 29 pg (25-35) Mean Corpuscular Hemoglobin Concent 33 g/dL (31-37) Red Cell Distribution Width 14.1 % (11.5-14.5) Platelet Count 323 x10^3/uL (140-400) Neutrophils (%) (Auto) 86 % (31-73) Lymphocytes (%) (Auto) 7 % (24-48) Monocytes (%) (Auto) 5 % (0-9) Eosinophils (%) (Auto) 1 % (0-3) Basophils (%) (Auto) 1 % (0-3) Neutrophils # (Auto) 13.8 x10^3/uL (1.8-7.7) Lymphocytes # (Auto) 1.2 x10^3/uL (1.0-4.8) Monocytes # (Auto) 0.8 x10^3/uL (0.0-1.1) Eosinophils # (Auto) 0.1 x10^3/uL (0.0-0.7) Basophils # (Auto) 0.1 x10^3/uL (0.0-0.2) Segmented Neutrophils % 86 % (35-66) Lymphocytes % 7 % (24-48) Monocytes % 4 % (0-10) Eosinophils % 2 % (0-5) Basophils % 1 % (0-3) Platelet Estimate Adequate (ADEQUATE) Sodium Level 136 mmol/L (136-145) Potassium Level 4.1 mmol/L (3.5-5.1) Chloride Level 103 mmol/L (98-107) Carbon Dioxide Level 25 mmol/L (21-32) Anion Gap 8 (6-14) Blood Urea Nitrogen 14 mg/dL (7-20) Creatinine 0.8 mg/dL (0.6-1.0) Estimated GFR (Cockcroft-Gault) 72.4 BUN/Creatinine Ratio 18 (6-20) Glucose Level 102 mg/dL (70-99) Lactic Acid Level 1.0 mmol/L (0.4-2.0) Calcium Level 8.4 mg/dL (8.5-10.1) Total Bilirubin 0.6 mg/dL (0.2-1.0) Aspartate Amino Transf (AST/SGOT) 19 U/L (15-37) Alanine Aminotransferase (ALT/SGPT) 29 U/L (14-59) Alkaline Phosphatase 62 U/L (46-116) Troponin I Quantitative < 0.017 ng/mL (0.000-0.055) OY-Ayd-I-Type Natriuretic Peptide 8264 pg/mL (0-124) Total Protein 7.0 g/dL (6.4-8.2) Albumin 3.2 g/dL (3.4-5.0) Albumin/Globulin Ratio 0.8 (1.0-1.7) Laboratory Tests Test 12/06/20 11:27 White Blood Count 16.0 x10^3/uL (4.0-11.0) Red Blood Count 3.91 x10^6/uL (3.50-5.40) Hemoglobin 11.2 g/dL (12.0-15.5) Hematocrit 33.7 % (36.0-47.0) Mean Corpuscular Volume 86 fL (79-100) Mean Corpuscular Hemoglobin 29 pg (25-35) Mean Corpuscular Hemoglobin Concent 33 g/dL (31-37) Red Cell Distribution Width 14.1 % (11.5-14.5) Platelet Count 323 x10^3/uL (140-400) Neutrophils (%) (Auto) 86 % (31-73) Lymphocytes (%) (Auto) 7 % (24-48) Monocytes (%) (Auto) 5 % (0-9) Eosinophils (%) (Auto) 1 % (0-3) Basophils (%) (Auto) 1 % (0-3) Neutrophils # (Auto) 13.8 x10^3/uL (1.8-7.7) Lymphocytes # (Auto) 1.2 x10^3/uL (1.0-4.8) Monocytes # (Auto) 0.8 x10^3/uL (0.0-1.1) Eosinophils # (Auto) 0.1 x10^3/uL (0.0-0.7) Basophils # (Auto) 0.1 x10^3/uL (0.0-0.2) Segmented Neutrophils % 86 % (35-66) Lymphocytes % 7 % (24-48) Monocytes % 4 % (0-10) Eosinophils % 2 % (0-5) Basophils % 1 % (0-3) Platelet Estimate Adequate (ADEQUATE) Sodium Level 136 mmol/L (136-145) Potassium Level 4.1 mmol/L (3.5-5.1) Chloride Level 103 mmol/L (98-107) Carbon Dioxide Level 25 mmol/L (21-32) Anion Gap 8 (6-14) Blood Urea Nitrogen 14 mg/dL (7-20) Creatinine 0.8 mg/dL (0.6-1.0) Estimated GFR (Cockcroft-Gault) 72.4 BUN/Creatinine Ratio 18 (6-20) Glucose Level 102 mg/dL (70-99) Lactic Acid Level 1.0 mmol/L (0.4-2.0) Calcium Level 8.4 mg/dL (8.5-10.1) Total Bilirubin 0.6 mg/dL (0.2-1.0) Aspartate Amino Transf (AST/SGOT) 19 U/L (15-37) Alanine Aminotransferase (ALT/SGPT) 29 U/L (14-59) Alkaline Phosphatase 62 U/L (46-116) Troponin I Quantitative < 0.017 ng/mL (0.000-0.055) SM-Ioc-G-Type Natriuretic Peptide 8264 pg/mL (0-124) Total Protein 7.0 g/dL (6.4-8.2) Albumin 3.2 g/dL (3.4-5.0) Albumin/Globulin Ratio 0.8 (1.0-1.7) Medications Active Scripts Medications Dose Route/Sig Max Daily Dose Days Date Category Proair Hfa Inhaler (Albuterol Sulfate) 8.5 Gm Hfa.aer.ad 2 Puff IH PRN Q4-6HRS PRN 21 12/06/20 Reported Carvedilol 3.125 Mg Tablet 3.125 Mg PO BID 30 11/21/20 Rx Atorvastatin Calcium 10 Mg Tablet 10 Mg PO HS 30 11/21/20 Rx Lisinopril 5 Mg Tablet 5 Mg PO DAILY 30 11/21/20 Rx Tessalon Perle (Benzonatate) 100 Mg Capsule 1 Cap PO TID 10/27/20 Rx Proair Hfa (Albuterol Sulfate) 8.5 Gm Hfa.aer.ad 2 Puff IH PRN Q4-6HRS PRN 10/27/20 Rx Proair Hfa Inhaler (Albuterol Sulfate) 8.5 Gm Hfa.aer.ad 2 Puff IH PRN Q4-6HRS PRN 21 08/23/19 Rx Aspirin 325 Mg Tablet 1 Tab PO DAILY 08/23/19 Reported Impression . Full note dictated progressive dyspnea secondary to acute on chronic systolic heart failure patient with known cardiomyopathy Doubt that this is related to acute exacerbation of COPD, no known indication for antibiotics. WENDY CHEEMA MD Dec 07, 2020 08:28
[2020-12-07] MEDS ORDERED: AZITHROMYCIN 500 MG in IV NORMAL SALINE 250ML 250 ML IV SCH (09:00)
[2020-12-07] MEDS: CARVEDILOL 3.125 MG TABLET. PO SCH ×2 (09:47→17:00)
[2020-12-07] MEDS: BENZONATATE 100 MG CAPSULE. PO SCH ×3 (09:47→21:39)
[2020-12-07] MEDS: LISINOPRIL 5 MG TABLET. PO SCH (09:48)
[2020-12-07 11:00] VITALS: BP 83/50
[2020-12-07] MEDS ORDERED: cefTRIAXone IV Push 1 GM VIAL. IVP SCH (12:00)
--- NOTE | 2020-12-07 12:41 | CONS ---
DATE OF CONSULTATION: 12/07/2020 REQUESTING PHYSICIAN: Dr. Domingo Fuentes. REASON FOR CONSULTATION: Pneumonia. HISTORY OF PRESENT ILLNESS: This is a 65-year-old female who came in with shortness of breath. Denies any fever. Denies any nausea, vomiting, diarrhea. The patient had COVID in middle of November 2020. She had 2 admissions then. The patient has been put on azithromycin and Rocephin. The patient denies any headache or visual symptoms. Denies any chest pain. Denies any abdominal pain, urinary symptoms or bowel symptoms. PAST MEDICAL HISTORY: Positive for recent COVID-19 positive. The patient has a history of: 1. Cardiomyopathy. 2. Congestive heart failure. 3. Hypertension. 4. COPD. 5. Methamphetamine use. SOCIAL HISTORY: Smoking, quit 3 months ago. No alcohol use. She does do drugs. ALLERGIES: No known drug allergies. CURRENT MEDICATIONS: Reviewed. REVIEW OF SYSTEMS: As per HPI. All other systems reviewed are negative. PHYSICAL EXAMINATION: GENERAL: Alert, oriented female, not in any distress. VITAL SIGNS: Stable, afebrile. HEENT: NAD. NECK: Supple. No JVP. No lymphadenopathy. LUNGS: Clear. HEART: S1, S2 regular. ABDOMEN: Benign. EXTREMITIES: No edema, cyanosis. SKIN: Unremarkable. NEUROLOGIC: The patient is alert, awake and appropriate. No focal neurologic deficit. LABORATORY DATA: White count is 16,000. Her BUN and creatinine are normal. BNP is 8264. Chest x-ray and chest CT showed no embolism. Emphysema. Mild pulmonary edema and bilateral effusion. Cardiomegaly. IMPRESSION: 1. Shortness of breath from congestive heart failure. 2. Pulmonary infection, appears very less likely or unlikely. 3. Recent COVID. 4. Substance abuse. RECOMMENDATIONS: Recommend discontinue IV antibiotics. Can be switched over to oral Augmentin. Diuresis as per Cardiology and primary. The patient can be discharged from the infectious disease standpoint of view. Thank you very much, Dr. Fuentes, for giving me the opportunity to participate in this patient's care. HANS MUHAMMAD MD DR: LEONIE/goyo JOB#: [id number] / [id number]
[2020-12-07] MEDS: AMOXICILLIN/K CLAV 875/125MG TABLET. PO SCH ×2 (13:01→21:39)
[2020-12-07] MEDS ORDERED: FUROSEMIDE 40 MG/4 ML VIAL. IVP ONE (14:15)
--- NOTE | 2020-12-07 14:27 | PDOC2 ---
DAISY ARCHER INVESTIGATOR [employer] 12/07/20 1427: CARDIAC CONSULT DATE OF CONSULT Date of Consult DATE: 12/07/20 TIME: 14:12 REASON FOR CONSULT Reason for Consult: CHF REFERRING PHYSICIAN Referring Physician: Clarissa SOURCE Source: Chart review, Patient HISTORY OF PRESENT ILLNESS HISTORY OF PRESENT ILLNESS This is a pleasant 65 yo female admitted for complains of shortness of breath. She has been SOA in the last month but more pronounced in the last few days. So imes notes leg swelling. Positive for nonproductive cough but no fever or chills. She had ccovid-19 in 11/18 and was treated. She still has anosmia and ageusia. Denioes any chest pain or palpitations. No dizziness or passing out. She stopped using tobacco but still uses meth. PAST MEDICAL HISTORY Cardiovascular: CHF, HTN, Other (cardiomyopathy, chronic LBBB) Pulmonary: COPD, Other (Covid-19) CENTRAL NERVOUS SYSTEM: Other (No pertinent history) GI: No pertinent hx Heme/Onc: No pertinent hx Hepatobiliary: No pertinent hx Psych: Other (substance abuse) Musculoskeletal: Osteoarthritis Rheumatologic: No pertinent hx Infectious disease: No pertinent hx ENT: No pertinent hx Renal/: No pertinent hx Endocrine: No pertinent hx Dermatology: No pertinent hx PAST SURGICAL HISTORY Past Surgical History: Arthroscopy (ankle surgery), Tubal Ligation FAMILY HISTORY Family History: Heart Disease (mother) SOCIAL HISTORY Smoke: <1 pack per day ALCOHOL: none Drugs: Crystal meth Lives: with Family CURRENT MEDICATIONS CURRENT MEDICATIONS Current Medications Medications (Trade) Dose Ordered Sig/James Route PRN Reason Start Time Stop Time Status Last Admin Dose Admin Methylprednisolone Sodium Succinate (SOLU-Medrol 125MG VIAL) 125 mg 1X ONCE IV 12/06/20 15:45 12/06/20 15:46 DC 12/06/20 17:10 Albuterol/ Ipratropium (Duoneb) 3 ml 1X ONCE NEB 12/06/20 15:45 12/06/20 15:46 DC 12/06/20 16:40 Furosemide (Lasix) 20 mg 1X ONCE IVP 12/06/20 16:30 12/06/20 16:31 DC 12/06/20 17:10 Aspirin (Jaxon Aspirin) 325 mg DAILYWBKFT PO 12/07/20 08:00 12/07/20 09:47 Atorvastatin Calcium (Lipitor) 10 mg HS PO 12/06/20 23:00 12/06/20 23:27 Benzonatate (Tessalon Perle) 100 mg TID PO 12/06/20 23:00 12/07/20 09:47 Carvedilol (Coreg) 3.125 mg BIDWMEALS PO 12/07/20 08:00 12/07/20 09:47 Lisinopril (Prinivil) 5 mg DAILY PO 12/07/20 09:00 12/07/20 09:48 Azithromycin 500 mg/Sodium Chloride 250 ml @ 250 mls/hr Q24H IV 12/07/20 09:00 12/07/20 10:26 DC 12/07/20 09:00 Amoxicillin/ Clavulanate Potassium (Augmentin 875/ 125mg) 1 tab BID PO 12/07/20 12:00 12/07/20 13:01 ALLERGIES ALLERGIES: Coded Allergies: No Known Drug Allergies (Unverified , 10/15/13) ROS Review of System 14 point ROS evaluated with pertinent positives noted per HPI PHYSICAL EXAM General: Alert, Oriented X3, Cooperative, No acute distress HEENT: Atraumatic, Mucous membr. moist/pink Lungs: Other (basilar crackles) Heart: Regular rate (SR LBBB), Normal S1, Normal S2, Other (S4, 3/6 systolic murmur to LLS border) Abdomen: Soft, No tenderness Extremities: No cyanosis, No edema Skin: No breakdown, No significant lesion Neuro: Normal speech, Sensation intact Psych/Mental Status: Mental status NL, Mood NL MUSCULOSKELETAL: Osteoarthritic changes both hands VITALS/I&O VITALS/I&O: Vital Signs Date Time Temp Pulse Resp B/P (MAP) Pulse Ox O2 Delivery O2 Flow Rate FiO2 12/07/20 11:00 98.4 80 17 83/50 (61) 99 Room Air 98.4 12/07/20 02:49 2.0 I & O 12/06/20 12/06/20 12/07/20 15:00 23:00 07:00 Intake Total 400 ml Balance 400 ml ECHOCARDIOGRAM ECHOCARDIOGRAM <Conclusion> The ejection fraction is severely impaired. Estimated ejection fraction 15-20%. There is global hypokinesis of the left ventricle. The Left Ventricle is severely dilated. DATE: 08/24/19 1534 ASSESSMENT/PLAN ASSESSMENT/PLAN 1. Acute on chronic systolic CHF 2. Presumed NICM: EF 15-20% 3. AECOPD with tobaccoism: reported quit few months ago. Per PCP 4. Substance abuse: still uises meth last use 4 days ago 5. HTN: controlled at low end 6. Recovered covid-19: still has ageusia and anosmia 7. NSVT Recommendations 1. Lasix therapy 2. Meth and smoking cessation reinforced 3. Continue lisinopril and coreg 4. Check K and Mg and will replace per level. Limited TTE 5. ASA, check FLP and will place on statin per level 6. Will need MPI as an outpt if pt would comply and stop meth use. ELY FREDERICK MD 12/08/20 0838: CARDIAC CONSULT ASSESSMENT/PLAN ASSESSMENT/PLAN Pt. seen and examined. Agree with above CIRCULAR KNIFE CUTTER MACHINE note. Supportive care. Late entry for 12/08/20 DAISY ARCHER APRN Dec 07, 2020 14:27 ELY FREDERICK MD Dec 08, 2020 08:38
[2020-12-07 15:00] VITALS: BP 84/53
--- NOTE | 2020-12-07 15:12 | NUR ---
SW following for discharge planning. Spoke with RN and reviewed chart. SW consulted for frequent hospitalizations. SW familiar with this pt from recent previous admission. Pt referred to PAT on last admission as she tested positive for Meth. Pt from home with boyfriend. Pt currently on PO Augmentin, cardiac diet, room air. Pt COIVD positive. SW following. Addendum: 12/07/20 at 1515 by RACHEL KIRBY Pt self-pay and Med Assist is following.
[2020-12-07 17:15] LABS: CALCIUM 8.5 mg/dL (8.5-10.1); CREATININE 1.2 mg/dL (0.6-1.0); GFR 45.4; POTASSIUM 3.9 mmol/L (3.5-5.1)
[2020-12-07 17:16] LABS: MAGNESIUM 2.2 mg/dL (1.8-2.4)
--- NOTE | 2020-12-07 18:16 | PDOC ---
[facility] PROGRESS NOTE Date of Service DOS: DATE: 12/07/20 TIME: 18:15 Chief Complaint Chief Complaint Acute on chronic systolic CHF EF 15-20% Acute COPD exacerbation Polysubstance abuse History of hypertension History of COVID-19 infection, recovered Cardiology consult Pulmonology consult ID consult History of Present Illness History of Present Illness 12/07/2020 No acute events overnight. Patient expresses improved symptoms. No concerns from nursing. Saturating 92% on room air. Patient's chart, labs, images were reviewed and discussed with RN 65-year-old female who is recovering from COVID-19. Basically now her disease is progressing again. She is short of breath. She has got a cough. She quit smoking 3 months ago. Rates her symptoms at 7/10. She tried increasing her home meds, but that is not helping. She was just discharged from the hospital in November after being treated for COVID and pneumonia. I discussed the case with ER physician. We are going to admit the patient and consult Pulmonary Medicine and Cardiology as she is also showing some signs of heart failure. Vitals/I&O Vitals/I&O: Vital Signs Date Time Temp Pulse Resp B/P (MAP) Pulse Ox O2 Delivery O2 Flow Rate FiO2 12/07/20 17:00 85 84/53 12/07/20 15:00 98.3 17 92 Room Air 98.3 12/07/20 02:49 2.0 I & O 12/06/20 12/06/20 12/07/20 15:00 23:00 07:00 Intake Total 400 ml Balance 400 ml Physical Exam General: Alert, Oriented X3, Cooperative, No acute distress Heart: Regular rate (SR LBBB), Normal S1, Normal S2, Other (S4, 3/6 systolic murmur to LLS border) Lungs: Wheezing, Crackles Abdomen: Soft, No tenderness Extremities: No cyanosis, No edema Skin: No breakdown, No significant lesion Labs Labs: Laboratory Tests Test 12/07/20 16:52 Sodium Level 138 mmol/L (136-145) Potassium Level 3.9 mmol/L (3.5-5.1) Chloride Level 105 mmol/L (98-107) Carbon Dioxide Level 26 mmol/L (21-32) Anion Gap 7 (6-14) Blood Urea Nitrogen 29 mg/dL (7-20) Creatinine 1.2 mg/dL (0.6-1.0) Estimated GFR (Cockcroft-Gault) 45.4 Glucose Level 86 mg/dL (70-99) Calcium Level 8.5 mg/dL (8.5-10.1) Magnesium Level 2.2 mg/dL (1.8-2.4) Assessment and Plan Assessmemt and Plan Problems Medical Problems: (1) CHF (congestive heart failure) Status: Acute (2) COPD (chronic obstructive pulmonary disease) Status: Acute (3) Dyspnea Status: Acute (4) Methamphetamine use Status: Acute Comment Review of Relevant I have reviewed the following items jose (where applicable) has been applied. Medications: Current Medications Medications (Trade) Dose Ordered Sig/James Route PRN Reason Start Time Stop Time Status Last Admin Dose Admin Aspirin (Jaxon Aspirin) 325 mg DAILYWBKFT PO 12/07/20 08:00 12/07/20 14:15 DC 12/07/20 09:47 Atorvastatin Calcium (Lipitor) 10 mg HS PO 12/06/20 23:00 12/06/20 23:27 Benzonatate (Tessalon Perle) 100 mg TID PO 12/06/20 23:00 12/07/20 15:42 Carvedilol (Coreg) 3.125 mg BIDWMEALS PO 12/07/20 08:00 12/07/20 09:47 Lisinopril (Prinivil) 5 mg DAILY PO 12/07/20 09:00 12/07/20 09:48 Azithromycin 500 mg/Sodium Chloride 250 ml @ 250 mls/hr Q24H IV 12/07/20 09:00 12/07/20 10:26 DC 12/07/20 09:00 Amoxicillin/ Clavulanate Potassium (Augmentin 875/ 125mg) 1 tab BID PO 12/07/20 12:00 12/07/20 13:01 Justifications for Admission Other Justification ROSSY READ MD Dec 07, 2020 18:16
[2020-12-07 18:55] VITALS: BP 100/55
[2020-12-07] MEDS: ATORVASTATIN CALCIUM 10 MG TABLET. PO SCH (21:39)
[2020-12-07 23:00] VITALS: BP 102/56
--- NOTE | 2020-12-08 00:33 | CONS ---
DATE OF CONSULTATION: 12/07/2020 ATTENDING PHYSICIAN: Domingo Fuentes DO REASON FOR CONSULTATION: The patient is seen in pulmonary consultation at the request of Dr. Fuentes for increasing shortness of breath. HISTORY OF PRESENT ILLNESS: The patient is a 65-year-old that came in with increasing shortness of breath, not associated with fever, chills or night sweats. She smoked up until approximately 3 months ago. She had COVID-19 in the middle of November. She presented with increasing shortness of breath. I was asked to see her in consultation. She had a CT angiogram, which revealed no evidence of pulmonary emboli. There is some evidence of interstitial pulmonary edema. The patient does have a history of cardiomyopathy. She was seen by Infectious Disease that recommended discontinuing IV antibiotics, switch over to Augmentin. She is due to be seen by Cardiology. PAST MEDICAL HISTORY: Otherwise remarkable for cardiomyopathy with previous ejection fraction of 50%. Left ventricle was severely dilated on previous echocardiogram, congestive heart failure, hypertension, chronic obstructive pulmonary disease and methamphetamine use. SOCIAL HISTORY: She quit tobacco 2 months ago. No current use of drugs. ALLERGIES: No known drug allergies. REVIEW OF SYSTEMS: As indicated above, otherwise, a 10-point system was reviewed and negative as stated above. PHYSICAL EXAMINATION: VITAL SIGNS: Stable. O2 saturations greater than 92%. HEENT: Eyes: The sclerae were nonicteric. NECK: Jugular venous distention was not elevated. No lymphadenopathy. CHEST: Full expansion. LUNGS: Adequate flow with no wheezes. CARDIOVASCULAR: Regular rate and rhythm with S1, S2, no S3. ABDOMEN: Soft, nontender and nondistended. EXTREMITIES: No clubbing cyanosis or edema. IMPRESSION: 1. Progressive dyspnea secondary to [id number]-[id number] systolic heart failure. 2. Iozet-cr-whzvmex systolic heart failure. 3. Abnormal CT chest, compatible with pulmonary edema. 4. Recovered from COVID-19. PLAN: 1. I agree with Dr. Massey. No need for antibiotics. 2. No need for steroids. 3. Diurese. 4. Discharge when okay with Cardiology. WENDY CHEEMA MD DR: KRISHAN/goyo JOB#: [id number] / [id number]
[2020-12-08 02:48] VITALS: BP 116/72
[2020-12-08 07:31] VITALS: BP 116/64
[2020-12-08] MEDS ORDERED: ASPIRIN ENTERIC COATED 81 MG TABLET.DR. PO SCH (08:00)
[2020-12-08] MEDS: AMOXICILLIN/K CLAV 875/125MG TABLET. PO SCH (08:58)
[2020-12-08] MEDS: CARVEDILOL 3.125 MG TABLET. PO SCH (08:59)
[2020-12-08] MEDS: BENZONATATE 100 MG CAPSULE. PO SCH (08:59)
[2020-12-08] MEDS: LISINOPRIL 5 MG TABLET. PO SCH (08:59)
[2020-12-08] MEDS ORDERED: FUROSEMIDE 40 MG TABLET. PO SCH (09:00)
--- NOTE | 2020-12-08 09:07 | PDOC ---
PULMONARY PROGRESS NOTES DATE: 12/08/20 TIME: 09:07 Vitals Vital Signs Date Time Temp Pulse Resp B/P (MAP) Pulse Ox O2 Delivery O2 Flow Rate FiO2 12/08/20 08:59 81 116/64 12/08/20 07:31 98.4 16 96 Room Air 98.4 Lungs: Wheezing, Crackles Cardiovascular: S1, S2 Labs Laboratory Tests Test 12/06/20 11:27 12/07/20 16:52 White Blood Count 16.0 x10^3/uL (4.0-11.0) Red Blood Count 3.91 x10^6/uL (3.50-5.40) Hemoglobin 11.2 g/dL (12.0-15.5) Hematocrit 33.7 % (36.0-47.0) Mean Corpuscular Volume 86 fL (79-100) Mean Corpuscular Hemoglobin 29 pg (25-35) Mean Corpuscular Hemoglobin Concent 33 g/dL (31-37) Red Cell Distribution Width 14.1 % (11.5-14.5) Platelet Count 323 x10^3/uL (140-400) Neutrophils (%) (Auto) 86 % (31-73) Lymphocytes (%) (Auto) 7 % (24-48) Monocytes (%) (Auto) 5 % (0-9) Eosinophils (%) (Auto) 1 % (0-3) Basophils (%) (Auto) 1 % (0-3) Neutrophils # (Auto) 13.8 x10^3/uL (1.8-7.7) Lymphocytes # (Auto) 1.2 x10^3/uL (1.0-4.8) Monocytes # (Auto) 0.8 x10^3/uL (0.0-1.1) Eosinophils # (Auto) 0.1 x10^3/uL (0.0-0.7) Basophils # (Auto) 0.1 x10^3/uL (0.0-0.2) Segmented Neutrophils % 86 % (35-66) Lymphocytes % 7 % (24-48) Monocytes % 4 % (0-10) Eosinophils % 2 % (0-5) Basophils % 1 % (0-3) Platelet Estimate Adequate (ADEQUATE) Sodium Level 136 mmol/L (136-145) 138 mmol/L (136-145) Potassium Level 4.1 mmol/L (3.5-5.1) 3.9 mmol/L (3.5-5.1) Chloride Level 103 mmol/L (98-107) 105 mmol/L (98-107) Carbon Dioxide Level 25 mmol/L (21-32) 26 mmol/L (21-32) Anion Gap 8 (6-14) 7 (6-14) Blood Urea Nitrogen 14 mg/dL (7-20) 29 mg/dL (7-20) Creatinine 0.8 mg/dL (0.6-1.0) 1.2 mg/dL (0.6-1.0) Estimated GFR (Cockcroft-Gault) 72.4 45.4 BUN/Creatinine Ratio 18 (6-20) Glucose Level 102 mg/dL (70-99) 86 mg/dL (70-99) Lactic Acid Level 1.0 mmol/L (0.4-2.0) Calcium Level 8.4 mg/dL (8.5-10.1) 8.5 mg/dL (8.5-10.1) Total Bilirubin 0.6 mg/dL (0.2-1.0) Aspartate Amino Transf (AST/SGOT) 19 U/L (15-37) Alanine Aminotransferase (ALT/SGPT) 29 U/L (14-59) Alkaline Phosphatase 62 U/L (46-116) Troponin I Quantitative < 0.017 ng/mL (0.000-0.055) NV-Fgo-U-Type Natriuretic Peptide 8264 pg/mL (0-124) Total Protein 7.0 g/dL (6.4-8.2) Albumin 3.2 g/dL (3.4-5.0) Albumin/Globulin Ratio 0.8 (1.0-1.7) Magnesium Level 2.2 mg/dL (1.8-2.4) Procalcitonin 0.18 ng/mL (0.00-0.10) Laboratory Tests Test 12/07/20 16:52 Sodium Level 138 mmol/L (136-145) Potassium Level 3.9 mmol/L (3.5-5.1) Chloride Level 105 mmol/L (98-107) Carbon Dioxide Level 26 mmol/L (21-32) Anion Gap 7 (6-14) Blood Urea Nitrogen 29 mg/dL (7-20) Creatinine 1.2 mg/dL (0.6-1.0) Estimated GFR (Cockcroft-Gault) 45.4 Glucose Level 86 mg/dL (70-99) Calcium Level 8.5 mg/dL (8.5-10.1) Magnesium Level 2.2 mg/dL (1.8-2.4) Procalcitonin 0.18 ng/mL (0.00-0.10) Medications Active Scripts Medications Dose Route/Sig Max Daily Dose Days Date Category Proair Hfa Inhaler (Albuterol Sulfate) 8.5 Gm Hfa.aer.ad 2 Puff IH PRN Q4-6HRS PRN 21 12/06/20 Reported Carvedilol 3.125 Mg Tablet 3.125 Mg PO BID 30 11/21/20 Rx Atorvastatin Calcium 10 Mg Tablet 10 Mg PO HS 30 11/21/20 Rx Lisinopril 5 Mg Tablet 5 Mg PO DAILY 30 11/21/20 Rx Tessalon Perle (Benzonatate) 100 Mg Capsule 1 Cap PO TID 10/27/20 Rx Proair Hfa (Albuterol Sulfate) 8.5 Gm Hfa.aer.ad 2 Puff IH PRN Q4-6HRS PRN 10/27/20 Rx Proair Hfa Inhaler (Albuterol Sulfate) 8.5 Gm Hfa.aer.ad 2 Puff IH PRN Q4-6HRS PRN 21 08/23/19 Rx Aspirin 325 Mg Tablet 1 Tab PO DAILY 08/23/19 Reported Impression . Full note dictated progressive dyspnea secondary to acute on chronic systolic heart failure patient with known cardiomyopathy Doubt that this is related to acute exacerbation of COPD, no known indication for antibiotics. WENDY CHEEMA MD Dec 08, 2020 09:07
--- NOTE | 2020-12-08 11:03 | NUR ---
SW following for discharge planning. Spoke with RN and reviewed chart. SW met with Robert from [facility] who came to assess pt and provide her with out patient resources for substance abuse treatment. Pt provided with resources. Pt to discharge home self-care today, 12/08. No further SW needs at this time.
[2020-12-08 11:10] VITALS: BP 105/61
[2020-12-08] MEDS ORDERED: AMOX1TAB11 PO (11:15)
--- NOTE | 2020-12-08 11:22 | DISCH ---
DISCHARGE INSTRUCTIONS Condition on Discharge Condition on Discharge: Stable Activity After Discharge Activity Instructions for Disc: Activity as tolerated Lifting Instructions after Dis: Do not lift >10 pounds Weight Bearing Status after Di: As tolerated Diet after Discharge Diet after Discharge: Cardiac Diet Texture: Regular Liquid Texture: Thin Liquid Swallowing Supervision: None needed Checks after Discharge Checks after discharge: Check blood press - daily, Check your Temp as needed, Weigh Yourself Daily Follow-Up Follow up with: PCP within 2 weeks of discharge Follow Up With: Cardiology as needed or scheduled Treatment/Equipment after DC Adaptive Equipment Issued: None ROSSY READ MD Dec 08, 2020 11:22
--- NOTE | 2020-12-08 11:27 | PDOC ---
Infectious Disease Note Subjective Subjective pt is feeling better ROS ROS no n/v/d/ Vital Sign Vital Signs Vital Signs Date Time Temp Pulse Resp B/P (MAP) Pulse Ox O2 Delivery O2 Flow Rate FiO2 12/08/20 11:10 98.1 78 16 105/61 (76) 95 Room Air 98.1 Physical Exam PHYSICAL EXAM GENERAL: Alert, oriented female, not in any distress. VITAL SIGNS: Stable, afebrile. HEENT: NAD. NECK: Supple. No JVP. No lymphadenopathy. LUNGS: Clear. HEART: S1, S2 regular. ABDOMEN: Benign. EXTREMITIES: No edema, cyanosis. SKIN: Unremarkable. NEUROLOGIC: The patient is alert, awake and appropriate. No focal neurologic deficit. Labs Lab Laboratory Tests Test 12/07/20 16:52 Sodium Level 138 mmol/L (136-145) Potassium Level 3.9 mmol/L (3.5-5.1) Chloride Level 105 mmol/L (98-107) Carbon Dioxide Level 26 mmol/L (21-32) Anion Gap 7 (6-14) Blood Urea Nitrogen 29 mg/dL (7-20) Creatinine 1.2 mg/dL (0.6-1.0) Estimated GFR (Cockcroft-Gault) 45.4 Glucose Level 86 mg/dL (70-99) Calcium Level 8.5 mg/dL (8.5-10.1) Magnesium Level 2.2 mg/dL (1.8-2.4) Procalcitonin 0.18 ng/mL (0.00-0.10) Micro Microbiology 12/06/20 Blood Culture - Preliminary, Resulted NO GROWTH AFTER 1 DAY Objective Assessment IMPRESSION: 1. Shortness of breath from congestive heart failure. 2. Pulmonary infection, appears very less likely or unlikely. 3. Recent COVID. 4. Substance abuse. Plan Plan of Care po antibiotics d/c HANS Arana MD Dec 08, 2020 11:27
--- NOTE | 2020-12-08 12:40 | PDOC ---
DAISY ARCHER PORT TRAFFIC MANAGER 12/08/20 1240: CARDIO Progress Notes Date and Time Date of Service 12/08/2020 Time of Evaluation 1110 Subjective Subjective: No Chest Pain, No shortness of breath, No Palpitations Vitals Vitals Vital Signs Date Time Temp Pulse Resp B/P (MAP) Pulse Ox O2 Delivery O2 Flow Rate FiO2 12/08/20 11:10 98.1 78 16 105/61 (76) 95 Room Air 98.1 Weight Weight [ ] Input and Output Intake and Output Intake and Output 12/08/20 07:00 Intake Total 1500 ml Balance 1500 ml Intake Oral 1500 ml Laboratory Labs Laboratory Tests Test 12/07/20 16:52 Sodium Level 138 mmol/L (136-145) Potassium Level 3.9 mmol/L (3.5-5.1) Chloride Level 105 mmol/L (98-107) Carbon Dioxide Level 26 mmol/L (21-32) Anion Gap 7 (6-14) Blood Urea Nitrogen 29 mg/dL (7-20) Creatinine 1.2 mg/dL (0.6-1.0) Estimated GFR (Cockcroft-Gault) 45.4 Glucose Level 86 mg/dL (70-99) Calcium Level 8.5 mg/dL (8.5-10.1) Magnesium Level 2.2 mg/dL (1.8-2.4) Procalcitonin 0.18 ng/mL (0.00-0.10) Microbiology Micro Microbiology 12/06/20 Blood Culture - Preliminary, Resulted NO GROWTH AFTER 1 DAY Physical Exam HEENT: Neck Supple W Full Motion Chest: Symmetric LUNGS: Other (diminished bases) Heart: RRR (SR) Abdomen: Soft N/T Extremities: No Edema, No Calf Tenderness Neurology: alert, oriented, follow commands Assessment Assessment 1. Acute on chronic systolic CHF: compensated 2. Presumed NICM: EF 15-20% 3. AECOPD with tobaccoism: reported quit few months ago. Per PCP 4. Substance abuse: still uses meth last use 5 days ago 5. HTN: controlled 6. Recovered covid-19: still has ageusia and anosmia 7. NSVT: better overnight Recommendations 1. Lasix therapy 2. Meth and smoking cessation reinforced 3. Continue lisinopril and coreg 4. TTE 5. ASA, check FLP and will place on statin per level 6. Will need MPI as an outpt if pt would comply and stop meth use. Justicifation of Admission Dx: Justifications for Admission: Justification of Admission Dx: Yes ELY FREDERICK MD 12/08/20 1457: CARDIO Progress Notes Plan Plan Pt. seen and examined. Agree with above BEAMER HELPER note. Supportive care. DAISY ARCHER APRN Dec 08, 2020 12:40 ELY FREDERICK MD Dec 08, 2020 14:57
--- NOTE | 2020-12-08 12:57 | CARD ---
MR#: [id number] Date of Study: 12/08/2020 Ordering Physician: DAISY ARCHER, Referring Physician: DAISY ARCHER Tech: Mali Zuniga [facility] APPROVED REPORT EXAM: Two-dimensional and M-mode echocardiogram with Doppler and color Doppler. Other Information Quality : Good INDICATION Cardiomyopathy RISK FACTORS Hypertension 2D DIMENSIONS RVDd2.5 (2.9-3.5cm)Left Atrium(2D)4.2 (1.6-4.0cm) IVSd0.6 (0.7-1.1cm)Aortic Root(2D)2.8 (2.0-3.7cm) LVDd7.4 (3.9-5.9cm)LVOT Diameter2.0 (1.8-2.4cm) PWd0.8 (0.7-1.1cm)LVDs6.4 (2.5-4.0cm) FS (%) 13.1 %SV78.3 ml M-Mode DIMENSIONS LVDd6.94 (4.0-5.6cm)MV EPSS4.1 (<0.5cm) FS (%) 1 %LVDs6.87 (2.0-3.8cm) ESV(Teich)245.0 mlLVEF(%)2 (>50%) Aortic Valve AoV Peak Kit.149.2cm/sAoV VTI24.8cm AO Peak GR.8.9mmHgLVOT Peak Kit.128.8cm/s AO Mean GR.5mmHgAVA (VMAX)2.59cm2 LIZ (VTI)2.50ai6YK P 1/2 Myxq189uy Mitral Valve MV E Eipoorxh019.9cm/sMV DECEL LRWN245yl MV A Phkuyapu41.3cm/sE/A Ratio1.6 Tricuspid Valve TR P. Ktoawizz637uu/sRAP OLGXQHFC8ozDz TR Peak Gr.04eaOuVUSA28tpQo Pulmonary Vein S1 Lpyyaboo67.5cm/sD2 Hrhbqlrc19.9cm/s LEFT VENTRICLE The Left Ventricle is severely dilated. There is normal left ventricular wall thickness. Left ventric le systolic function is severely impaired. The Ejection Fraction is estimated at 15%. There is severe global hypokinesis of the left ventricle. Transmitral Doppler flow pattern is Grade II-pseudonormal filling dynamics. RIGHT VENTRICLE The right ventricle cavity is decreased. The right ventricular systolic function is normal. ATRIA The left atrium is mildly dilated. The right atrium size is normal. The interatrial septum is intact with no evidence for an atrial septal defect or patent foramen ovale as noted on 2-D or Doppler imagi ng. AORTIC VALVE The aortic valve is calcified but opens well. Doppler and Color Flow revealed mild aortic regurgitati on. There is no significant aortic valvular stenosis. MITRAL VALVE The mitral valve is mildly thickened but opens well. There is no evidence of mitral valve prolapse. T here is no mitral valve stenosis. Doppler and Color-flow revealed mild mitral regurgitation. TRICUSPID VALVE The tricuspid valve is normal in structure and function. Doppler and Color Flow revealed mild tricusp id regurgitation. The PA pressure was estimated at 58 mmHg. There is no tricuspid valve stenosis. PULMONIC VALVE The pulmonic valve is not well visualized. Doppler and Color Flow revealed mild pulmonic valvular reg urgitation. There is no pulmonic valvular stenosis. GREAT VESSELS The aortic root is normal in size. The ascending aorta is normal in size. The IVC is normal in size a nd collapses >50% with inspiration. PERICARDIAL EFFUSION There is no evidence of significant pericardial effusion. Critical Notification Critical Value: No <Conclusion> The Left Ventricle is severely dilated. Left ventricle systolic function is severely impaired. The Ejection Fraction is estimated at 15%. There is severe global hypokinesis of the left ventricle. Doppler and Color Flow revealed mild aortic regurgitation. There is no significant aortic valvular stenosis. Doppler and Color-flow revealed mild mitral regurgitation. Doppler and Color Flow revealed mild tricuspid regurgitation. The PA pressure was estimated at 58 mmHg. Signed by : Yonis Davis MD Electronically Approved : 12/08/2020 12:56:39
[2020-12-08 13:28] LABS: CREATININE 0.9 mg/dL (0.6-1.0); GFR 63.2; POTASSIUM 3.5 mmol/L (3.5-5.1)
--- NOTE | 2020-12-08 15:00 | NUR ---
Per Stephanie Vines request, walked patient around unit to determine if patient will need oxygen to go home and have a 6 min walk if so. patient tolerated walking the unit and oxygen saturation stayed at 97%.
[2020-12-08 15:33] VITALS: BP 101/57
--- NOTE | 2020-12-08 15:47 | NUR ---
Discharge Note: CASE,MARIELY EscobarKathleen [facility] Discharge instructions and discharge home medications reviewed with Patient and a copy given. All questions have been answered and understanding verbalized. The following instructions and handouts were given: follow up appointment with Dr. Perdue on December 24 at 11:00 Discontinued lines and drains: 20 guage left FA, tip intact, patient tolerated well. Patient discharged to home with self care via family.
[2020-12-08] MEDS ORDERED: LACTOBACILLUS RHAMNOSUS GG 1 CAPSULE. PO SCH (21:00)
[2020-12-09] MEDS ORDERED: LISINOPRIL 5 MG TABLET. PO SCH (09:00)
== END 2020-12-08 15:51 | disposition home or self-care (01) | DRG 291 ==
LOC: ER 10:42 → ED HOLD 15:20 → 6 SOUTH 18:30
PROVIDERS: ADMIT Internal Medicine; ATTEND Internal Medicine
DX: I11.0 Hypertensive heart disease with heart failure (principal); J96.90 Respiratory failure, unspecified, unspecified whether with hypoxia or hypercapnia; I47.2 Ventricular tachycardia; I50.23 Acute on chronic systolic (congestive) heart failure; F15.10 Other stimulant abuse, uncomplicated; F17.210 Nicotine dependence, cigarettes, uncomplicated; I42.8 Other cardiomyopathies; J43.2 Centrilobular emphysema; Z86.16 Personal history of COVID-19; M19.90 Unspecified osteoarthritis, unspecified site; Z82.49 Family history of ischemic heart disease and other diseases of the circulatory system; Z83.3 Family history of diabetes mellitus; Z98.51 Tubal ligation status
CPT/HCPCS: 36415; 71045; 71275; 80048; 80053; 83605; 83735; 83880; 84145; 84484; 85007; 85025; 87040; 93005; 93306; 94640; 96361; 96374; 96375; 99285; J0456; J0696; J1940; J2930; J7040; J7050; Q9967; G0378; J7030

== ENCOUNTER 2021-05-26 10:29 | Inpatient (IN) | payer SELFPAY ==
[~2021-05-26] VITALS: Ht 157.5 cm; Wt 47.7 kg
[~2021-05-26 10:29] MED LIST changes: -DOXY100C2 PO; +DOXY100C3 PO
[2021-05-26 12:11] LABS: BASO # 0.1 x10^3/uL (0.0-0.2); BASO % 1 % (0-3); EOS # 0.2 x10^3/uL (0.0-0.7); EOS % 2 % (0-3); HEMATOCRIT 35.1 % (36.0-47.0); LYMPH # 1.4 x10^3/uL (1.0-4.8); LYMPH % 14 % (24-48); MEAN CORPUSCULAR HEMOGLOBIN 29 pg (25-35); MEAN CORPUSCULAR HGB CONC 34 g/dL (31-37); MEAN CORPUSCULAR VOLUME 85 fL (79-100); MONO # 0.9 x10^3/uL (0.0-1.1); MONO % 9 % (0-9); NEUT # 7.4 x10^3/uL (1.8-7.7); NEUT % 74 % (31-73); PLATELET COUNT 292 x10^3/uL (140-400); RED BLOOD COUNT 4.13 x10^6/uL (3.50-5.40); RED CELL DISTRIBUTION WIDTH 13.1 % (11.5-14.5)
[2021-05-26 12:27] LABS: CALCIUM 8.8 mg/dL (8.5-10.1); CREATININE 0.8 mg/dL (0.6-1.0); GFR 72.4; POTASSIUM 3.9 mmol/L (3.5-5.1)
[2021-05-26 12:32] LABS: ALBUMIN 3.4 g/dL (3.4-5.0); ALBUMIN/GLOBULIN RATIO 0.9 (1.0-1.7); MAGNESIUM 1.8 mg/dL (1.8-2.4); TOTAL BILIRUBIN 0.7 mg/dL (0.2-1.0); TOTAL PROTEIN 7.2 g/dL (6.4-8.2)
--- NOTE | 2021-05-26 12:32 | RAD ---
EXAM: Chest, single view. HISTORY: Shortness of air. COMPARISON: 12/06/2020 FINDINGS: A frontal view of the chest is obtained. There is diffuse right lung interstitial infiltrat e superimposed on chronic interstitial changes. There is no consolidation, protrusion or pneumothorax . There is stable cardiomegaly. IMPRESSION: Diffuse right lung interstitial infiltrate superimposed on bilateral chronic interstitial changes. Electronically signed by: Mely Ornelas MD (05/26/2021 12:30 PM) [id number]
[2021-05-26 12:40] LABS: INFLUENZA A PATIENT NEGATIVE (NEGATIVE); INFLUENZA B PATIENT NEGATIVE (NEGATIVE)
--- NOTE | 2021-05-26 13:29 | EKG ---
[facility] [address] [place] [address] Test Date: 2021-05-26 Test Time: 11:09:15 Pat Name: MARIELY WALTER Department: Room: Gender: F [employer] Sales Consultant: : 1955 Requested By: JESSE CHEN Order Number: [id number] Reading MD: Measurements Intervals [place] Rate: 95 P: 54 MN: 158 QRS: -3 QRSD: 160 T: 132 QT: 404 QTc: 511 Interpretive Statements SINUS RHYTHM LEFTWARD AXIS LEFT BUNDLE BRANCH BLOCK ABNORMAL ECG RI6.02 No previous ECG available for comparison
[2021-05-26 15:44] LABS: BILIRUBIN,URINE NEGATIVE (NEG); CLARITY,URINE CLEAR; COLOR,URINE YELLOW; NITRITE,URINE NEGATIVE (NEG); PROTEIN,URINE 30 mg/dL (NEG-TRACE); UROBILINOGEN,URINE 0.2 mg/dL (0.2 mg/dL)
[2021-05-26 15:51] LABS: BACTERIA,URINE 0 /HPF (0-FEW); RBC,URINE OCC /HPF (0-2)
[2021-05-26 15:52] LABS: BARBITURATES NEG (NEG); BENZODIAZEPINES NEG (NEG); CANNABINOIDS NEG (NEG); COCAINE POS (NEG); METHADONE NEG (NEG); OPIATES NEG (NEG); PHENCYCLIDINE NEG (NEG)
[2021-05-26 15:53] LABS: AMPHETAMINE/METHAMPHETAMINE POS (NEG)
[2021-05-26] MEDS ORDERED: NICOTINE 21MG PATCH. TD STA (16:16)
--- NOTE | 2021-05-26 16:16 | PHYS DOC ---
Past Medical History Past Medical History: CHF, Hypertension Additional Past Medical Histor: LBBB, Meth use (JESSE CHEN AEROBICS INSTRUCTOR) Past Surgical History: Tubal ligation, Other Additional Past Surgical Histo: ANKLE SURGERY (JESSE CHEN AEROBICS INSTRUCTOR) Smoking Status: Current Every Day Smoker Alcohol Use: None Drug Use: Marijuana, Methamphetamine (JESSE CHEN AEROBICS INSTRUCTOR) General Adult EDM: Chief Complaint: SHORTNESS OF BREATH HPI: HPI: Patient is a 65 year old female with a history of hypertension, COPD, current smoker who presents the ED today complaining of cough, shortness of breath, headaches, body aches, chills, symptoms for 2 days. Patient denies any fever. Denies any chest pain. She states she received a Covid vaccine a couple months ago. Patient states she primarily hangs out in the casinos and could have a risk of pneumonia. (JESSE CHEN AEROBICS INSTRUCTOR) Review of Systems: Review of Systems: Constitutional: Reports body aches. Denies fever Eyes: Denies change in visual acuity. [] HENT: Denies nasal congestion or sore throat. [] Respiratory: Reports cough and shortness of breath. [] Cardiovascular: Denies chest pain or edema. [] GI: Denies abdominal pain, nausea, vomiting, bloody stools or diarrhea. [] : Denies dysuria. [] Musculoskeletal: Denies back pain or joint pain. [] Integument: Denies rash. [] Neurologic: Reports headache, denies focal weakness or sensory changes. [] Psychiatric: Denies depression or anxiety. [] (JESSE CHEN AEROBICS INSTRUCTOR) Heart Score: C/O Chest Pain: N/A Risk Factors: Risk Factors: DM, Current or recent (<one month) smoker, HTN, HLP, family history of CAD, obesity. Risk Scores: Score 0 - 3: 2.5% MACE over next 6 weeks - Discharge Home Score 4 - 6: 20.3% MACE over next 6 weeks - Admit for Clinical Observation Score 7 - 10: 72.7% MACE over next 6 weeks - Early Invasive Strategies (JESSE CHEN AEROBICS INSTRUCTOR) Allergies: Allergies: Allergies Coded Allergies Type Severity Reaction Last Updated Verified No Known Drug Allergies 10/15/13 No (JESSE CHEN AEROBICS INSTRUCTOR) Physical Exam: PE: Constitutional: Well developed, well nourished, no acute distress, non-toxic appearance. [] HENT: Normocephalic, atraumatic, bilateral external ears normal, oropharynx moist, no oral exudates, nose normal. [] Eyes: PERRLA, EOMI, conjunctiva normal, no discharge. [] Neck: Normal range of motion, no tenderness, supple, no stridor. [] Cardiovascular:Heart rate regular rhythm, no murmur [] Lungs & Thorax: Bilateral breath sounds clear to auscultation [] Abdomen: Bowel sounds normal, soft, no tenderness, no masses, no pulsatile masses. [] Skin: Warm, dry, no erythema, no rash. [] Back: No tenderness, no CVA tenderness. [] Extremities: No tenderness, no cyanosis, no clubbing, ROM intact, no edema. [] Neurologic: Alert and oriented X 3, normal motor function, normal sensory function, no focal deficits noted. Cranial nerves II through XII intact Psychologic: Affect normal, judgement normal, mood normal. [] (JESSE CHEN APRN) Current Patient Data: Labs: Laboratory Tests Test 05/26/21 11:25 05/26/21 11:40 05/26/21 14:20 05/26/21 15:30 White Blood Count 10.0 x10^3/uL (4.0-11.0) Red Blood Count 4.13 x10^6/uL (3.50-5.40) Hemoglobin 12.0 g/dL (12.0-15.5) Hematocrit 35.1 % (36.0-47.0) L Mean Corpuscular Volume 85 fL (79-100) Mean Corpuscular Hemoglobin 29 pg (25-35) Mean Corpuscular Hemoglobin Concent 34 g/dL (31-37) Red Cell Distribution Width 13.1 % (11.5-14.5) Platelet Count 292 x10^3/uL (140-400) Neutrophils (%) (Auto) 74 % (31-73) H Lymphocytes (%) (Auto) 14 % (24-48) L Monocytes (%) (Auto) 9 % (0-9) Eosinophils (%) (Auto) 2 % (0-3) Basophils (%) (Auto) 1 % (0-3) Neutrophils # (Auto) 7.4 x10^3/uL (1.8-7.7) Lymphocytes # (Auto) 1.4 x10^3/uL (1.0-4.8) Monocytes # (Auto) 0.9 x10^3/uL (0.0-1.1) Eosinophils # (Auto) 0.2 x10^3/uL (0.0-0.7) Basophils # (Auto) 0.1 x10^3/uL (0.0-0.2) Lactic Acid Level 1.1 mmol/L (0.4-2.0) Troponin I Quantitative < 0.017 ng/mL (0.000-0.055) < 0.017 ng/mL (0.000-0.055) GR-Zjy-M-Type Natriuretic Peptide 3956 pg/mL (0-124) H Procalcitonin < 0.10 ng/mL (0.00-0.10) Influenza Type A Antigen Negative (NEGATIVE) Influenza Type B Antigen Negative (NEGATIVE) SARS-CoV-2 Antigen (Rapid) Negative (NEGATIVE) Sodium Level 138 mmol/L (136-145) Potassium Level 3.9 mmol/L (3.5-5.1) Chloride Level 102 mmol/L (98-107) Carbon Dioxide Level 26 mmol/L (21-32) Anion Gap 10 (6-14) Blood Urea Nitrogen 17 mg/dL (7-20) Creatinine 0.8 mg/dL (0.6-1.0) Estimated GFR (Cockcroft-Gault) 72.4 BUN/Creatinine Ratio 21 (6-20) H Glucose Level 92 mg/dL (70-99) Calcium Level 8.8 mg/dL (8.5-10.1) Magnesium Level 1.8 mg/dL (1.8-2.4) Total Bilirubin 0.7 mg/dL (0.2-1.0) Aspartate Amino Transferase (AST) 25 U/L (15-37) Alanine Aminotransferase (ALT) 43 U/L (14-59) Alkaline Phosphatase 74 U/L (46-116) Total Protein 7.2 g/dL (6.4-8.2) Albumin 3.4 g/dL (3.4-5.0) Albumin/Globulin Ratio 0.9 (1.0-1.7) L Urine Collection Type Unknown Urine Color Yellow Urine Clarity Clear Urine pH 6.0 (<5.0-8.0) Urine Specific [place] 1.025 (1.000-1.030) Urine Protein 30 mg/dL (NEG-TRACE) Urine Glucose (UA) Negative mg/dL (NEG) Urine Ketones (Stick) Negative mg/dL (NEG) Urine Blood Negative (NEG) Urine Nitrite Negative (NEG) Urine Bilirubin Negative (NEG) Urine Urobilinogen Dipstick 0.2 mg/dL (0.2 mg/dL) Urine Leukocyte Esterase Small (NEG) Urine RBC Occ /HPF (0-2) Urine WBC 1-4 /HPF (0-4) Urine Squamous Epithelial Cells Mod /LPF Urine Bacteria 0 /HPF (0-FEW) Urine Mucus Slight /LPF Urine Opiates Screen Neg (NEG) Urine Methadone Screen Neg (NEG) Urine Barbiturates Neg (NEG) Urine Phencyclidine Screen Neg (NEG) Urine Amphetamine/Methamphetamine Pos (NEG) Urine Benzodiazepines Screen Neg (NEG) Urine Cocaine Screen Pos (NEG) Urine Cannabinoids Screen Neg (NEG) Urine Ethyl Alcohol Neg (NEG) Laboratory Tests 05/26/21 11:25 Laboratory Tests 05/26/21 11:40 Vital Signs: Vital Signs Date Time Temp Pulse Resp B/P (MAP) Pulse Ox O2 Delivery O2 Flow Rate FiO2 05/26/21 13:53 101 24 130/86 (101) 95 High Flow Nasal Cannula 2.0 05/26/21 10:58 98.6 98.6 (JESSE CHEN AEROBICS INSTRUCTOR) EKG: EK interpreted by Dr. Crow sinus rhythm heart rate 95 no STEMI (JESSE CHEN AEROBICS INSTRUCTOR) Radiology/Procedures: Radiology/Procedures: []PROCEDURE: PORTABLE CHEST 1V EXAM: Chest, single view. HISTORY: Shortness of air. COMPARISON: 12/06/2020 FINDINGS: A frontal view of the chest is obtained. There is diffuse right lung interstitial infiltrate superimposed on chronic interstitial changes. There is no consolidation, protrusion or pneumothorax. There is stable cardiomegaly. IMPRESSION: Diffuse right lung interstitial infiltrate superimposed on bilateral chronic interstitial changes. Electronically signed by: Mely Murphy MD (05/26/2021 12:30 PM) [id number] DICTATED and SIGNED BY: MELY MURPHY MD DATE: 05/26/21 [id number] (JESSE CHEN APRN) Course & Med Decision Making: Course & Med Decision Making Pertinent Labs and Imaging studies reviewed. (See chart for details) This is a 65-year-old female patient presenting today complaining of cough, shortness of breath, body aches, chills, symptoms for 2 days. Patient is afebrile, she is hypoxic with O2 sats going down as low as 88% on room air. CBC with no acute findings, CMP with no acute findings, Negative rapid Covid swab. BNP 3956. UDS positive for cocaine and methamphetamine Chest x-ray noted for interstitial infiltrates Spoke with Dr. Fuentes who accepted patient for admission, routine consult placed for cardiology Patient advised to consider smoking cessation (JESSE CHEN APRN) Dragon Disclaimer: Dragon Disclaimer: This electronic medical record was generated, in whole or in part, using a voice recognition dictation system. (JESSE CHEN APRN) Departure Departure Impression: Primary Impression: Smoking addiction Additional Impressions: COPD exacerbation Hypoxia CHF (congestive heart failure) Qualified Codes: I50.9 - Heart failure, unspecified Referrals: JUANA QUINTANA MD (PCP) Attending Signature I have participated in the care of this patient and I have reviewed and agree with all pertinent clinical information above including history, exam, and recommendations. (JIGNESH CROW DO) JESSE CHEN APRN May 26, 2021 16:16 JIGNESH CROW DO May 26, 2021 16:25
[2021-05-26] MEDS ORDERED: methylPREDNISolone SOD SUCC PF 125 MG/2 ML VIAL. IV ONE (16:30)
[2021-05-26] MEDS ORDERED: MORPHINE SULFATE 2 MG/ML INJ. IVP PRN (16:30)
[2021-05-26] MEDS ORDERED: ACETAMINOPHEN 325 MG TABLET. PO PRN (16:30)
[2021-05-26] MEDS ORDERED: ONDANSETRON PF 4 MG/2 ML VIAL. IVP PRN (16:30)
[2021-05-26] MEDS ORDERED: FUROSEMIDE 40 MG/4 ML VIAL. IVP ONE (16:30)
[2021-05-26] MEDS ORDERED: PIP/TAZO PER PHARMACY MC PRN (17:30)
[2021-05-26] MEDS: PIPERACILLIN/TAZOBACTAM 3.375 GM in IV NORMAL SALINE 50ML 50 ML IV SCH (17:41)
--- NOTE | 2021-05-26 18:09 | HP ---
ADMIT DATE: 05/26/2021 CHIEF COMPLAINT: Shortness of breath, cough. HISTORY OF PRESENT ILLNESS: The patient is a pleasant 65-year-old female who presented to the ER today with shortness of breath and cough. She continues to smoke. She also uses marijuana and methamphetamine. While in the ER, we noticed that she is a little hypoxic. She has got pulmonary infiltrates, appears to have a COPD exacerbation with respiratory failure. We are also going to rule out COVID-19. The patient has been admitted to the monitored floor. PAST MEDICAL HISTORY: Continued tobacco abuse, methamphetamine abuse, CHF, hypertension, left bundle branch block, tubal ligation, ankle surgery. ALLERGIES: None. FAMILY HISTORY: Hypertension. SOCIAL HISTORY: She drink, smokes and takes drugs. MEDICATIONS: Reviewed, please refer to the MRAD. REVIEW OF SYSTEMS: GENERAL: No history of weight change, weakness or fevers. SKIN: No bruising, hair changes or rashes. EYES: No blurred, double or loss of vision. NOSE AND THROAT: No history of nosebleeds, hoarseness or sore throat. HEART: No history of palpitations, chest pain or shortness of breath on exertion. LUNGS: She complains of shortness of breath. GASTROINTESTINAL: Denies changes in appetite, nausea, vomiting, diarrhea or constipation. GENITOURINARY: No history of frequency, urgency, hesitancy or nocturia. NEUROLOGIC: Denies history of numbness, tingling, tremor or weakness. PSYCHIATRIC: No history of panic, anxiety or depression. ENDOCRINE: No history of heat or cold intolerance, polyuria or polydipsia. EXTREMITIES: Denies muscle weakness, joint pain, pain on walking or stiffness. . PHYSICAL EXAMINATION: VITALS: Within normal limits and are stable. GENERAL: She appears disheveled and depressed. HEENT: Normal cephalic atraumatic, external auditory canals are patent. EYES: Extraocular muscles are intact, pupils are equally round and reactive to light and accommodation. MUSCULOSKELETAL: Well developed, well nourished, good range of motion. ENDOCRINE: No thyromegaly was palpated. LYMPHATICS: No cervical chain or axillary nodes were noted. HEMATOPOIETIC: No bruising. NECK: Supple, no JVD, no thyromegaly was noted. LUNGS: Clear to auscultation in all lung [place] without rhonchi or wheezing. HEART: RRR, S1, S2 present. Peripheral pulses intact, no obvious murmurs were noted. ABDOMEN: Soft, nontender. Positive bowel sounds no organomegaly, normal bowel sounds. EXTREMITIES: Without any cyanosis, clubbing, or edema. Pedal pulses intact, Homans sign is negative. NEUROLOGIC: She is weak. She is sleeping on the right side. She awakens, but goes back to sleep. PSYCHIATRIC: She appears depressed. SKIN: No ulcerations or rashes, good skin turgor, no jaundice. VASCULAR: Good capillary refill, neurovascular bundle appears to be intact. LABORATORY DATA: White count 10, hemoglobin 12, platelets 292. Electrolytes are normal. Troponin is 0. Chest x-ray shows diffuse right interstitial infiltrate, superimposed on bilateral chronic interstitial changes. ASSESSMENT AND PLAN: Respiratory failure. The patient will be admitted. We will start empiric IV antibiotics, IV steroids, beta agonist, oxygen. Home meds. DVT prophylaxis. Full code. Consult Pulmonary. PROGNOSIS: Guarded. SCARLET DR: Neris TID: [id number]
[2021-05-26 19:30] VITALS: BP 100/64
[2021-05-26] MEDS: IPRATRPIUM/ALBUTEROL 0.5/2.5MG 3 ML NEBU. NEB SCH (20:00)
[2021-05-26 22:00] VITALS: BP 89/54
[2021-05-26] MEDS: methylPREDNISolone SOD SUCC PF 40 MG/ML VIAL. IV SCH (22:13)
[2021-05-27 04:16] VITALS: BP 90/55
[2021-05-27] MEDS: PIPERACILLIN/TAZOBACTAM 3.375 GM in IV NORMAL SALINE 50ML 50 ML IV SCH ×2 (06:00)
[2021-05-27 07:30] VITALS: BP 86/52
[2021-05-27 07:38] LABS: ALBUMIN 3.1 g/dL (3.4-5.0); ALBUMIN/GLOBULIN RATIO 0.7 (1.0-1.7); CREATININE 1.1 mg/dL (0.6-1.0); GFR 50.2; POTASSIUM 3.9 mmol/L (3.5-5.1); TOTAL BILIRUBIN 0.8 mg/dL (0.2-1.0); TOTAL PROTEIN 7.4 g/dL (6.4-8.2)
[2021-05-27 07:52] LABS: BASO % 0 % (0-3); EOS % 0 % (0-3); HEMATOCRIT 37.6 % (36.0-47.0); HEMOGLOBIN 13.2 g/dL (12.0-15.5); LYMPH # 0.8 x10^3/uL (1.0-4.8); LYMPH % 11 % (24-48); MEAN CORPUSCULAR HEMOGLOBIN 30 pg (25-35); MEAN CORPUSCULAR HGB CONC 35 g/dL (31-37); MEAN CORPUSCULAR VOLUME 86 fL (79-100); MONO # 0.1 x10^3/uL (0.0-1.1); MONO % 2 % (0-9); NEUT # 6.3 x10^3/uL (1.8-7.7); NEUT % 87 % (31-73); PLATELET COUNT 298 x10^3/uL (140-400); RED BLOOD COUNT 4.39 x10^6/uL (3.50-5.40); RED CELL DISTRIBUTION WIDTH 13.4 % (11.5-14.5); WHITE BLOOD COUNT 7.3 x10^3/uL (4.0-11.0)
[2021-05-27] MEDS: IPRATRPIUM/ALBUTEROL 0.5/2.5MG 3 ML NEBU. NEB SCH ×3 (07:56→16:48)
[2021-05-27] MEDS: methylPREDNISolone SOD SUCC PF 40 MG/ML VIAL. IV SCH (09:45)
[2021-05-27 10:13] VITALS: BP 93/51
--- NOTE | 2021-05-27 11:25 | CONS ---
DATE OF CONSULTATION: 05/27/2021 PULMONARY CONSULTATION ATTENDING PHYSICIAN: Dr. Fuentes. REASON FOR CONSULTATION: Respiratory failure. HISTORY OF PRESENT ILLNESS: The patient is a 65-year-old female who has a history of tobaccoism for 30+ years, history of severe cardiomyopathy with an EF of 15%, history of marijuana, meth and cocaine use. She was brought into the hospital with increasing dyspnea. She has a mild cough. No fever, no chills, no chest pain, no headache, no nausea, vomiting, diarrhea. Her chest x-ray was consistent with bilateral interstitial infiltrates. She is COVID negative. PAST MEDICAL HISTORY: History of continued tobaccoism, likely underlying COPD. Substance abuse. History of severe cardiomyopathy with an EF of 15%. PAST SURGICAL HISTORY: Tubal ligation, ankle surgery. ALLERGIES: None. FAMILY HISTORY: Hypertension. SOCIAL HISTORY: Smoker for 30+ years and still smokes cigarettes. History of cocaine, meth and marijuana use. REVIEW OF SYSTEMS: As discussed in my history of presence illness, otherwise noncontributory. MEDICATIONS: Reviewed as listed in the MRAD. PHYSICAL EXAMINATION: VITAL SIGNS: Reviewed. Afebrile, pulse ox 97% on room air. NECK: Supple. LUNGS: Clear. CARDIOVASCULAR: With a regular rate. ABDOMEN: Soft. EXTREMITIES: With no pitting edema. LABORATORY DATA: Reviewed. COVID is negative. BUN 22, creatinine 1.1. White cell count 7.3, hemoglobin 13.2 and platelets are 290. IMPRESSION: 1. Acute hypoxic respiratory failure secondary to acute on chronic systolic heart failure. No evidence of COVID-19. 2. Abnormal chest x-ray with bilateral diffuse interstitial infiltrates consistent with interstitial edema. 3. The patient with known cardiomyopathy with an ejection fraction of 15% based on echo from November of this year. 4. Polysubstance abuse including marijuana, cocaine and meth. 5. Long history of tobaccoism with likely underlying chronic obstructive pulmonary disease. RECOMMENDATIONS: 1. Discussed with Cardiology, MECHANIC. Wean her off the oxygen, keep saturation 92% and above. 2. Taper off steroids. 3. Continue DuoNebs. 4. Antibiotics can be deescalated soon. No clinical evidence of pneumonia. 5. Diuresis. 6. Followup chest x-ray. 7. Follow Cardiology recommendation regarding any ischemic workup for cardiomyopathy. 8. Smoking cessation counseling provided. Discussed with VIMAL. MAX/CHARLENE DR: Jack TID: [id number]
[2021-05-27 11:38] LABS: % LYMPHS 14 % (24-48); % SEGS 86 % (35-66); PLT ESTIMATE ADEQUATE (ADEQUATE)
--- NOTE | 2021-05-27 11:40 | NUR ---
SS following for discharge planning. SS reviewed pt chart and discussed with pt RN. Pt is from home with spouse and is currently on room air. COVID19 negative. Pt on PO Doxycycline. Pt positive for Methamphetamines and Cocaine. PAT Team referral made for assessment. Robert from PAT team met with pt and provided resources. Self pay. Med Assist following. SS will continue to follow for discharge planning.
--- NOTE | 2021-05-27 11:43 | PDOC2 ---
CARDIAC CONSULT DATE OF CONSULT Date of Consult DATE: 05/27/21 TIME: 11:29 REASON FOR CONSULT Reason for Consult: CHF REFERRING PHYSICIAN Referring Physician: Stephen SOURCE Source: Chart review, Patient HISTORY OF PRESENT ILLNESS HISTORY OF PRESENT ILLNESS This is a 65 yo female admitted for complains of SOA, cough with flu like symptoms in the last 3 days. No chest pain. Sje had her covid-19 vaccine 2 months ago. She continues to use illicit drugs and UDS+ for cocaine and methamphetamines. She is known for noncompliance, severe CM. She also continues to smoke tobacco. she had covid-19 infection early this yr and had the vaccine last January. No palpitations and verbalized that she takes her meds regularly. PAST MEDICAL HISTORY Past Medical History Cardiovascular: CHF, HTN, Other (cardiomyopathy, chronic LBBB) Pulmonary: COPD, Other (Covid-19) CENTRAL NERVOUS SYSTEM: Other (No pertinent history) GI: No pertinent hx Heme/Onc: No pertinent hx Hepatobiliary: No pertinent hx Psych: Other (substance abuse) Musculoskeletal: Osteoarthritis Rheumatologic: No pertinent hx Infectious disease: No pertinent hx ENT: No pertinent hx Renal/: No pertinent hx Endocrine: No pertinent hx Dermatology: No pertinent hx PAST SURGICAL HISTORY Past Surgical History Arthroscopy (ankle surgery), Tubal Ligation FAMILY HISTORY Family History Heart Disease (mother) SOCIAL HISTORY Social History Smoke: <1 pack per day ALCOHOL: none Drugs: Crystal meth, cocaine Lives: with Family CURRENT MEDICATIONS CURRENT MEDICATIONS Current Medications Medications (Trade) Dose Ordered Sig/James Route PRN Reason Start Time Stop Time Status Last Admin Dose Admin Acetaminophen (Tylenol) 650 mg PRN Q4HRS PRN PO FEVER > 100.3'F 05/26/21 16:30 05/27/21 16:29 05/26/21 22:12 Methylprednisolone Sodium Succinate (SOLU-Medrol 125MG VIAL) 125 mg 1X ONCE IV 05/26/21 16:30 05/26/21 16:31 DC 05/26/21 17:41 Furosemide (Lasix) 40 mg 1X ONCE IVP 05/26/21 16:30 05/26/21 16:31 DC 05/26/21 17:41 Nicotine (Nicoderm Cq 21mg) 1 patch 1X STAT TD 05/26/21 16:16 05/26/21 16:21 DC 05/26/21 17:40 Methylprednisolone Sodium Succinate (SOLU-Medrol 40MG VIAL) 40 mg BID IV 05/26/21 21:00 05/27/21 11:05 DC 05/27/21 09:45 Piperacillin Sod/ Tazobactam Sod 3.375 gm/Sodium Chloride 50 ml @ 100 mls/hr Q6HRS IV 05/26/21 18:00 05/27/21 11:05 DC 05/27/21 06:00 ALLERGIES ALLERGIES: Coded Allergies: No Known Drug Allergies (Unverified , 10/15/13) ROS Review of System 14 point ROS evaluated with pertinent positives noted per HPI PHYSICAL EXAM General: Alert, Oriented X3, Cooperative, No acute distress HEENT: Atraumatic, Mucous membr. moist/pink Lungs: Other (diminished bases) Heart: Regular rate (Sr), Other (distant heart sounds) Abdomen: Soft, No tenderness Extremities: No cyanosis, No edema Skin: No breakdown, No significant lesion Neuro: Normal speech, Sensation intact Psych/Mental Status: Mental status NL, Mood NL MUSCULOSKELETAL: Osteoarthritic changes both hands VITALS/I&O VITALS/I&O: Vital Signs Date Time Temp Pulse Resp B/P (MAP) Pulse Ox O2 Delivery O2 Flow Rate FiO2 05/27/21 10:13 97.4 69 16 93/51 (65) 97 Room Air 97.4 05/27/21 07:30 2.0 I & O 05/26/21 05/26/21 05/27/21 15:00 23:00 07:00 Intake Total 50 ml 750 ml Output Total 400 ml 700 ml Balance -350 ml 50 ml LABS Lab: Laboratory Tests Test 05/26/21 11:40 05/26/21 14:20 05/26/21 15:30 05/27/21 06:15 Sodium Level 138 mmol/L (136-145) 139 mmol/L (136-145) Potassium Level 3.9 mmol/L (3.5-5.1) 3.9 mmol/L (3.5-5.1) Chloride Level 102 mmol/L (98-107) 101 mmol/L (98-107) Carbon Dioxide Level 26 mmol/L (21-32) 30 mmol/L (21-32) Anion Gap 10 (6-14) 8 (6-14) Blood Urea Nitrogen 17 mg/dL (7-20) 22 mg/dL (7-20) H Creatinine 0.8 mg/dL (0.6-1.0) 1.1 mg/dL (0.6-1.0) H Estimated GFR (Cockcroft-Gault) 72.4 50.2 BUN/Creatinine Ratio 21 (6-20) H 20 (6-20) Glucose Level 92 mg/dL (70-99) 165 mg/dL (70-99) H Calcium Level 8.8 mg/dL (8.5-10.1) 9.0 mg/dL (8.5-10.1) Magnesium Level 1.8 mg/dL (1.8-2.4) Total Bilirubin 0.7 mg/dL (0.2-1.0) 0.8 mg/dL (0.2-1.0) Aspartate Amino Transferase (AST) 25 U/L (15-37) 19 U/L (15-37) Alanine Aminotransferase (ALT) 43 U/L (14-59) 35 U/L (14-59) Alkaline Phosphatase 74 U/L (46-116) 72 U/L (46-116) Total Protein 7.2 g/dL (6.4-8.2) 7.4 g/dL (6.4-8.2) Albumin 3.4 g/dL (3.4-5.0) 3.1 g/dL (3.4-5.0) L Albumin/Globulin Ratio 0.9 (1.0-1.7) L 0.7 (1.0-1.7) L Troponin I Quantitative < 0.017 ng/mL (0.000-0.055) Urine Collection Type Unknown Urine Color Yellow Urine Clarity Clear Urine pH 6.0 (<5.0-8.0) Urine Specific [place] 1.025 (1.000-1.030) Urine Protein 30 mg/dL (NEG-TRACE) Urine Glucose (UA) Negative mg/dL (NEG) Urine Ketones (Stick) Negative mg/dL (NEG) Urine Blood Negative (NEG) Urine Nitrite Negative (NEG) Urine Bilirubin Negative (NEG) Urine Urobilinogen Dipstick 0.2 mg/dL (0.2 mg/dL) Urine Leukocyte Esterase Small (NEG) Urine RBC Occ /HPF (0-2) Urine WBC 1-4 /HPF (0-4) Urine Squamous Epithelial Cells Mod /LPF Urine Bacteria 0 /HPF (0-FEW) Urine Mucus Slight /LPF Urine Opiates Screen Neg (NEG) Urine Methadone Screen Neg (NEG) Urine Barbiturates Neg (NEG) Urine Phencyclidine Screen Neg (NEG) Urine Amphetamine/Methamphetamine Pos (NEG) Urine Benzodiazepines Screen Neg (NEG) Urine Cocaine Screen Pos (NEG) Urine Cannabinoids Screen Neg (NEG) Urine Ethyl Alcohol Neg (NEG) White Blood Count 7.3 x10^3/uL (4.0-11.0) Red Blood Count 4.39 x10^6/uL (3.50-5.40) Hemoglobin 13.2 g/dL (12.0-15.5) Hematocrit 37.6 % (36.0-47.0) Mean Corpuscular Volume 86 fL (79-100) Mean Corpuscular Hemoglobin 30 pg (25-35) Mean Corpuscular Hemoglobin Concent 35 g/dL (31-37) Red Cell Distribution Width 13.4 % (11.5-14.5) Platelet Count 298 x10^3/uL (140-400) Neutrophils (%) (Auto) 87 % (31-73) H Lymphocytes (%) (Auto) 11 % (24-48) L Monocytes (%) (Auto) 2 % (0-9) Eosinophils (%) (Auto) 0 % (0-3) Basophils (%) (Auto) 0 % (0-3) Neutrophils # (Auto) 6.3 x10^3/uL (1.8-7.7) Lymphocytes # (Auto) 0.8 x10^3/uL (1.0-4.8) L Monocytes # (Auto) 0.1 x10^3/uL (0.0-1.1) Eosinophils # (Auto) 0.0 x10^3/uL (0.0-0.7) Basophils # (Auto) 0.0 x10^3/uL (0.0-0.2) Platelet Estimate Pending Laboratory Tests 05/27/21 06:15 Laboratory Tests 05/26/21 11:40 05/27/21 06:15 ASSESSMENT/PLAN ASSESSMENT/PLAN 1. Fever with possible URI Per PCP 2. Acute on chronic diastolic/systolic CHF: appears compensated 3. Severe Cardiomyopathy: presumed NICM with continue illicit drug use 4. Substance abuse with tobaccoism: UDS+ meth and cocaine 5. HTN: BP at low end 6. AECOPD 7. Mild JUAQUIN 8. Chronic LBBB Recommendations 1. Lasix therapy 2. May hold BP meds if BP trend continues to be low. Secondary prevention measures 3. Difficult to optimize for further treatment and diagnostics as she continues to use illicit drugs. 4. ASA 5. Discussed treatment adherence and avoidance of illicit drugs. Follow up in office DAISY ARCHER [employer] May 27, 2021 11:43
[2021-05-27] MEDS ORDERED: LISINOPRIL 5 MG TABLET. PO SCH (12:00)
[2021-05-27] MEDS ORDERED: DOXYCYCLINE HYCLATE 100 MG TABLET PO SCH (12:00)
[2021-05-27] MEDS ORDERED: ASPIRIN 325 MG TABLET PO SCH (12:00)
[2021-05-27 12:24] VITALS: BP 114/58
[2021-05-27 14:17] VITALS: BP 84/53
[2021-05-27] MEDS ORDERED: DOXY100T PO (15:08)
[2021-05-27] MEDS ORDERED: FURO20TA3 PO (15:08)
[2021-05-27] MEDS ORDERED: PRED20TA PO (15:08)
--- NOTE | 2021-05-27 15:10 | PDOC3 ---
Discharge Summary Visit Information Date of Admission: May 26, 2021 Date of Discharge: May 27, 2021 Admitting Diagnosis: CHF, COPD exacerbation Final Diagnosis Problems Medical Problems: (1) CHF (congestive heart failure) Status: Acute (2) COPD exacerbation Status: Acute (3) Hypoxia Status: Acute (4) Smoking addiction Status: Acute Brief Hospital Course Allergies Allergies Coded Allergies Type Severity Reaction Last Updated Verified No Known Drug Allergies 10/15/13 No Vital Signs Vital Signs Date Time Temp Pulse Resp B/P (MAP) Pulse Ox O2 Delivery O2 Flow Rate FiO2 05/27/21 14:17 97.6 16 84/53 (63) 96 Room Air 97.6 05/27/21 12:24 70 05/27/21 07:30 2.0 Lab Results Laboratory Tests Test 05/26/21 11:25 05/26/21 11:40 05/26/21 14:20 05/26/21 15:30 White Blood Count 10.0 x10^3/uL (4.0-11.0) Red Blood Count 4.13 x10^6/uL (3.50-5.40) Hemoglobin 12.0 g/dL (12.0-15.5) Hematocrit 35.1 % (36.0-47.0) Mean Corpuscular Volume 85 fL (79-100) Mean Corpuscular Hemoglobin 29 pg (25-35) Mean Corpuscular Hemoglobin Concent 34 g/dL (31-37) Red Cell Distribution Width 13.1 % (11.5-14.5) Platelet Count 292 x10^3/uL (140-400) Neutrophils (%) (Auto) 74 % (31-73) Lymphocytes (%) (Auto) 14 % (24-48) Monocytes (%) (Auto) 9 % (0-9) Eosinophils (%) (Auto) 2 % (0-3) Basophils (%) (Auto) 1 % (0-3) Neutrophils # (Auto) 7.4 x10^3/uL (1.8-7.7) Lymphocytes # (Auto) 1.4 x10^3/uL (1.0-4.8) Monocytes # (Auto) 0.9 x10^3/uL (0.0-1.1) Eosinophils # (Auto) 0.2 x10^3/uL (0.0-0.7) Basophils # (Auto) 0.1 x10^3/uL (0.0-0.2) Lactic Acid Level 1.1 mmol/L (0.4-2.0) Troponin I Quantitative < 0.017 ng/mL (0.000-0.055) < 0.017 ng/mL (0.000-0.055) JH-Kfg-X-Type Natriuretic Peptide 3956 pg/mL (0-124) Procalcitonin < 0.10 ng/mL (0.00-0.10) Influenza Type A Antigen Negative (NEGATIVE) Influenza Type B Antigen Negative (NEGATIVE) SARS-CoV-2 RNA (OLIVE) Negative (Negative) SARS-CoV-2 Antigen (Rapid) Negative (NEGATIVE) Sodium Level 138 mmol/L (136-145) Potassium Level 3.9 mmol/L (3.5-5.1) Chloride Level 102 mmol/L (98-107) Carbon Dioxide Level 26 mmol/L (21-32) Anion Gap 10 (6-14) Blood Urea Nitrogen 17 mg/dL (7-20) Creatinine 0.8 mg/dL (0.6-1.0) Estimated GFR (Cockcroft-Gault) 72.4 BUN/Creatinine Ratio 21 (6-20) Glucose Level 92 mg/dL (70-99) Calcium Level 8.8 mg/dL (8.5-10.1) Magnesium Level 1.8 mg/dL (1.8-2.4) Total Bilirubin 0.7 mg/dL (0.2-1.0) Aspartate Amino Transf (AST/SGOT) 25 U/L (15-37) Alanine Aminotransferase (ALT/SGPT) 43 U/L (14-59) Alkaline Phosphatase 74 U/L (46-116) Total Protein 7.2 g/dL (6.4-8.2) Albumin 3.4 g/dL (3.4-5.0) Albumin/Globulin Ratio 0.9 (1.0-1.7) Urine Collection Type Unknown Urine Color Yellow Urine Clarity Clear Urine pH 6.0 (<5.0-8.0) Urine Specific [place] 1.025 (1.000-1.030) Urine Protein 30 mg/dL (NEG-TRACE) Urine Glucose (UA) Negative mg/dL (NEG) Urine Ketones (Stick) Negative mg/dL (NEG) Urine Blood Negative (NEG) Urine Nitrite Negative (NEG) Urine Bilirubin Negative (NEG) Urine Urobilinogen Dipstick 0.2 mg/dL (0.2 mg/dL) Urine Leukocyte Esterase Small (NEG) Urine RBC Occ /HPF (0-2) Urine WBC 1-4 /HPF (0-4) Urine Squamous Epithelial Cells Mod /LPF Urine Bacteria 0 /HPF (0-FEW) Urine Mucus Slight /LPF Urine Opiates Screen Neg (NEG) Urine Methadone Screen Neg (NEG) Urine Barbiturates Neg (NEG) Urine Phencyclidine Screen Neg (NEG) Urine Amphetamine/Methamphetamine Pos (NEG) Urine Benzodiazepines Screen Neg (NEG) Urine Cocaine Screen Pos (NEG) Urine Cannabinoids Screen Neg (NEG) Urine Ethyl Alcohol Neg (NEG) Test 05/27/21 06:15 White Blood Count 7.3 x10^3/uL (4.0-11.0) Red Blood Count 4.39 x10^6/uL (3.50-5.40) Hemoglobin 13.2 g/dL (12.0-15.5) Hematocrit 37.6 % (36.0-47.0) Mean Corpuscular Volume 86 fL (79-100) Mean Corpuscular Hemoglobin 30 pg (25-35) Mean Corpuscular Hemoglobin Concent 35 g/dL (31-37) Red Cell Distribution Width 13.4 % (11.5-14.5) Platelet Count 298 x10^3/uL (140-400) Neutrophils (%) (Auto) 87 % (31-73) Lymphocytes (%) (Auto) 11 % (24-48) Monocytes (%) (Auto) 2 % (0-9) Eosinophils (%) (Auto) 0 % (0-3) Basophils (%) (Auto) 0 % (0-3) Neutrophils # (Auto) 6.3 x10^3/uL (1.8-7.7) Lymphocytes # (Auto) 0.8 x10^3/uL (1.0-4.8) Monocytes # (Auto) 0.1 x10^3/uL (0.0-1.1) Eosinophils # (Auto) 0.0 x10^3/uL (0.0-0.7) Basophils # (Auto) 0.0 x10^3/uL (0.0-0.2) Segmented Neutrophils % 86 % (35-66) Lymphocytes % 14 % (24-48) Platelet Estimate Adequate (ADEQUATE) Sodium Level 139 mmol/L (136-145) Potassium Level 3.9 mmol/L (3.5-5.1) Chloride Level 101 mmol/L (98-107) Carbon Dioxide Level 30 mmol/L (21-32) Anion Gap 8 (6-14) Blood Urea Nitrogen 22 mg/dL (7-20) Creatinine 1.1 mg/dL (0.6-1.0) Estimated GFR (Cockcroft-Gault) 50.2 BUN/Creatinine Ratio 20 (6-20) Glucose Level 165 mg/dL (70-99) Calcium Level 9.0 mg/dL (8.5-10.1) Total Bilirubin 0.8 mg/dL (0.2-1.0) Aspartate Amino Transf (AST/SGOT) 19 U/L (15-37) Alanine Aminotransferase (ALT/SGPT) 35 U/L (14-59) Alkaline Phosphatase 72 U/L (46-116) Total Protein 7.4 g/dL (6.4-8.2) Albumin 3.1 g/dL (3.4-5.0) Albumin/Globulin Ratio 0.7 (1.0-1.7) Laboratory Tests Test 05/26/21 15:30 05/27/21 06:15 Urine Collection Type Unknown Urine Color Yellow Urine Clarity Clear Urine pH 6.0 (<5.0-8.0) Urine Specific [place] 1.025 (1.000-1.030) Urine Protein 30 mg/dL (NEG-TRACE) Urine Glucose (UA) Negative mg/dL (NEG) Urine Ketones (Stick) Negative mg/dL (NEG) Urine Blood Negative (NEG) Urine Nitrite Negative (NEG) Urine Bilirubin Negative (NEG) Urine Urobilinogen Dipstick 0.2 mg/dL (0.2 mg/dL) Urine Leukocyte Esterase Small (NEG) Urine RBC Occ /HPF (0-2) Urine WBC 1-4 /HPF (0-4) Urine Squamous Epithelial Cells Mod /LPF Urine Bacteria 0 /HPF (0-FEW) Urine Mucus Slight /LPF Urine Opiates Screen Neg (NEG) Urine Methadone Screen Neg (NEG) Urine Barbiturates Neg (NEG) Urine Phencyclidine Screen Neg (NEG) Urine Amphetamine/Methamphetamine Pos (NEG) Urine Benzodiazepines Screen Neg (NEG) Urine Cocaine Screen Pos (NEG) Urine Cannabinoids Screen Neg (NEG) Urine Ethyl Alcohol Neg (NEG) White Blood Count 7.3 x10^3/uL (4.0-11.0) Red Blood Count 4.39 x10^6/uL (3.50-5.40) Hemoglobin 13.2 g/dL (12.0-15.5) Hematocrit 37.6 % (36.0-47.0) Mean Corpuscular Volume 86 fL (79-100) Mean Corpuscular Hemoglobin 30 pg (25-35) Mean Corpuscular Hemoglobin Concent 35 g/dL (31-37) Red Cell Distribution Width 13.4 % (11.5-14.5) Platelet Count 298 x10^3/uL (140-400) Neutrophils (%) (Auto) 87 % (31-73) Lymphocytes (%) (Auto) 11 % (24-48) Monocytes (%) (Auto) 2 % (0-9) Eosinophils (%) (Auto) 0 % (0-3) Basophils (%) (Auto) 0 % (0-3) Neutrophils # (Auto) 6.3 x10^3/uL (1.8-7.7) Lymphocytes # (Auto) 0.8 x10^3/uL (1.0-4.8) Monocytes # (Auto) 0.1 x10^3/uL (0.0-1.1) Eosinophils # (Auto) 0.0 x10^3/uL (0.0-0.7) Basophils # (Auto) 0.0 x10^3/uL (0.0-0.2) Segmented Neutrophils % 86 % (35-66) Lymphocytes % 14 % (24-48) Platelet Estimate Adequate (ADEQUATE) Sodium Level 139 mmol/L (136-145) Potassium Level 3.9 mmol/L (3.5-5.1) Chloride Level 101 mmol/L (98-107) Carbon Dioxide Level 30 mmol/L (21-32) Anion Gap 8 (6-14) Blood Urea Nitrogen 22 mg/dL (7-20) Creatinine 1.1 mg/dL (0.6-1.0) Estimated GFR (Cockcroft-Gault) 50.2 BUN/Creatinine Ratio 20 (6-20) Glucose Level 165 mg/dL (70-99) Calcium Level 9.0 mg/dL (8.5-10.1) Total Bilirubin 0.8 mg/dL (0.2-1.0) Aspartate Amino Transf (AST/SGOT) 19 U/L (15-37) Alanine Aminotransferase (ALT/SGPT) 35 U/L (14-59) Alkaline Phosphatase 72 U/L (46-116) Total Protein 7.4 g/dL (6.4-8.2) Albumin 3.1 g/dL (3.4-5.0) Albumin/Globulin Ratio 0.7 (1.0-1.7) Brief Hospital Course The patient is a pleasant 65-year-old female who presented to the ER today with shortness of breath and cough. She continues to smoke. She also uses marijuana and methamphetamine. While in the ER, we noticed that she is a little hypoxic. She has got pulmonary infiltrates, appears to have a COPD exacerbation with respiratory failure. We are also going to rule out COVID-19. The patient has been admitted to the monitored floor. 05/27 Patient evaluated at bedside. Doing well on room air. Evaluated by pulmonary and cardiology. Patient reports feeling much better. Will discharge home with short course of steroids antibiotics and will start patient on low-dose Lasix. Discharge Information Condition at Discharge: Improved Disposition/Orders: D/C to Home Scheduled Aspirin (Aspirin) 325 Mg Tablet, 1 TAB PO DAILY for heart health , #30 Ref 5 (Reported) Entered as Reported by: JANKI FAULKNER RN on 08/23/19 0239 Last Action: Continued on 05/27/21 1142 by DAISY ARCHER Atorvastatin Calcium (Atorvastatin Calcium) 10 Mg Tablet, 10 MG PO HS for CHF for 30 Days, #30 Ref 3 Prescribed by: JUDD SKELTON MD on 11/21/20 1408 Last Action: Continued on 05/27/21 1142 by DAISY ARCHER Benzonatate (Tessalon Perle) 100 Mg Capsule, 1 CAP PO TID, #30 Prescribed by: Stephanie Mitchell APRN on 10/27/20 1648 Carvedilol (Carvedilol) 3.125 Mg Tablet, 3.125 MG PO BID for CHF EF 15% for 30 Days, #60 Ref 3 Prescribed by: JUDD SKELTON MD on 11/21/20 1408 Doxycycline Hyclate (Doxycycline Hyclate) 100 Mg Tablet, 100 MG PO BID for empiric for 7 Days, #14 Prescribed by: JUDD PATEL MD on 05/27/21 1508 Furosemide (Furosemide) 20 Mg Tablet, 20 MG PO DAILY for chf for 30 Days, #30 Prescribed by: JUDD PATEL MD on 05/27/21 1508 Prednisone (Prednisone) 20 Mg Tablet, 40 MG PO DAILY for copd exacerbation for 5 Days, #10 Prescribed by: JUDD PATEL MD on 05/27/21 1508 Scheduled PRN Albuterol Sulfate (Proair Hfa Inhaler) 8.5 Gm Hfa.aer.ad, 2 PUFF IH PRN Q4-6HRS PRN for wheezing for 21 Days, #1 Ref 0 (Reported) Entered as Reported by: ALICIA TOLEDO RN on 12/06/20 2301 Discontinued Medications Amoxicillin/Potassium Clav (Amox Tr-K Clv 875-125 Mg Tab) 1 Each Tablet, 1 TAB PO BID for pneumonia for 5 Days, #10 Prescribed by: ROSSY READ MD on 12/08/20 1115 Lisinopril (Lisinopril) 5 Mg Tablet, 5 MG PO DAILY for CHF for 30 Days, #30 Ref 3 Prescribed by: JUDD SKELTON MD on 11/21/20 1408 Last Action: Continued on 05/27/21 1142 by DAISY ARCHER Justicifation of Admission Dx: Justifications for Admission: Justification of Admission Dx: Yes JUDD PATEL MD May 27, 2021 15:10
--- NOTE | 2021-05-27 16:32 | RAD ---
EXAM: Chest, single view. HISTORY: Congestive heart failure. COMPARISON: 05/26/2021 FINDINGS: A frontal view of the chest is obtained. There has been interval decrease in recently demon strated diffuse right lung interstitial infiltrate. There are chronic interstitial changes. There is no consolidation, pleural effusion or pneumothorax. There is stable cardiomegaly. IMPRESSION: Resolution of previously demonstrated diffuse right lung interstitial infiltrate superimp osed on chronic appearing interstitial changes. Stable cardiomegaly. Electronically signed by: Mely Ornelas MD (05/27/2021 4:30 PM) [id number]
--- NOTE | 2021-05-27 17:25 | NUR ---
Discharge Note: MARIELY WALTER [address] [place] [address] Discharge instructions and discharge home medications reviewed with Patient and a copy given. All questions have been answered and understanding verbalized. The following instructions and handouts were given: discharge instructions, follow ups, med list, CHF/cardiomyopathy education, drug abuse education. Discontinued lines and drains: Peripheral IV intact. Patient discharged to Home or Self Care with Family Member via [facility] at 1725.
[2021-05-27] MEDS ORDERED: ATORVASTATIN CALCIUM 10 MG TABLET. PO SCH (21:00)
[2021-05-28] MEDS ORDERED: predniSONE 20 MG TABLET PO SCH (09:00)
[2021-05-28] MEDS ORDERED: FUROSEMIDE 20 MG TABLET PO SCH (09:00)
[2021-05-28] MEDS ORDERED: LISINOPRIL 5 MG TABLET. PO SCH ×2 (09:00)
== END 2021-05-27 17:25 | disposition home or self-care (01) | DRG 189 ==
LOC: ER 10:29 → ED HOLD 14:17 → 6 SOUTH 15:26
PROVIDERS: ADMIT Internal Medicine; ATTEND Internal Medicine
PROC: 5A0935A Assistance with Respiratory Ventilation, Less than 24 Consecutive Hours, High Flow/Velocity Cannula (ICD-10-PCS; principal; 2021-05-26)
DX: J96.01 Acute respiratory failure with hypoxia (principal); I50.43 Acute on chronic combined systolic (congestive) and diastolic (congestive) heart failure; J44.1 Chronic obstructive pulmonary disease with (acute) exacerbation; N17.9 Acute kidney failure, unspecified; I42.8 Other cardiomyopathies; I11.0 Hypertensive heart disease with heart failure; F12.10 Cannabis abuse, uncomplicated; F14.10 Cocaine abuse, uncomplicated; F15.90 Other stimulant use, unspecified, uncomplicated; F17.210 Nicotine dependence, cigarettes, uncomplicated; I44.7 Left bundle-branch block, unspecified; Z20.822 Contact with and (suspected) exposure to COVID-19; Z79.82 Long term (current) use of aspirin; Z79.899 Other long term (current) drug therapy; Z82.49 Family history of ischemic heart disease and other diseases of the circulatory system; Z91.19 Patient's noncompliance with other medical treatment and regimen; Z98.51 Tubal ligation status; M19.90 Unspecified osteoarthritis, unspecified site; Z71.6 Tobacco abuse counseling
CPT/HCPCS: 36415; 71045; 80053; 80307; 81001; 83605; 83735; 83880; 84145; 84484; 85007; 85025; 87040; 87086; 87147; 87426; 87804; 93005; 94640; J1940; J2543; J2920; J2930; U0003; U0005; 99285-25; G0378

== ENCOUNTER 2021-11-18 02:42 | Inpatient (IN) | payer SELFPAY ==
[~2021-11-18] VITALS: Ht 154.9 cm; Wt 51.9 kg
[2021-11-18] VITALS (9 sets, daily range): BP systolic 89–114; BP diastolic 57–77
[~2021-11-18 02:42] MED LIST changes: +ASCO100019 PO; +CHOL5000 PO; +DOXY100T PO; +FURO20TA3 PO; -LISI-517 PO; +LISI5TAB15 PO; +PRED20TA PO
[2021-11-18] MEDS ORDERED: NITROGLYCERIN PREMIX 250 ML IV ONE (03:00)
[2021-11-18] MEDS ORDERED: IPRATRPIUM/ALBUTEROL 0.5/2.5MG 3 ML NEBU. NEB ONE (03:00)
[2021-11-18 03:16] LABS: BASE EXCESS ABG -6 mmol/L (-3-3); HCO3 ABG 21 mmol/L (21-28); PCO2 ABG 51 mmHg (35-46); PO2 ABG 200 mmHg (65-108); SAT O2 ABG 99 % (92-99)
[2021-11-18 03:21] LABS: FIO2 ABG 100
--- NOTE | 2021-11-18 03:23 | RAD ---
XR CHEST 1V INDICATION: dyspnea COMPARISON STUDY: 10/02/2021. FINDINGS: Lungs: Normal lung volume. Bilateral perihilar and basilar heterogeneous opacities. Pleura: No pleural effusion or pneumothorax. Heart and Mediastinum: Cardiomegaly. Atherosclerosis of the thoracic aorta. IMPRESSION: Bilateral perihilar and basilar opacities, likely pulmonary edema or multifocal infection. Electronically signed by: Kenan Card MD (11/18/2021 3:20 AM) [facility]
[2021-11-18 03:32] LABS: BASO % 0 % (0-3); EOS # 0.4 x10^3/uL (0.0-0.7); EOS % 4 % (0-3); HEMATOCRIT 43.9 % (36.0-47.0); HEMOGLOBIN 13.6 g/dL (12.0-15.5); LYMPH # 2.6 x10^3/uL (1.0-4.8); LYMPH % 27 % (24-48); MEAN CORPUSCULAR HEMOGLOBIN 28 pg (25-35); MEAN CORPUSCULAR HGB CONC 31 g/dL (31-37); MEAN CORPUSCULAR VOLUME 90 fL (79-100); MONO # 0.5 x10^3/uL (0.0-1.1); MONO % 5 % (0-9); NEUT # 6.1 x10^3/uL (1.8-7.7); NEUT % 63 % (31-73); PLATELET COUNT 332 x10^3/uL (140-400); RED BLOOD COUNT 4.89 x10^6/uL (3.50-5.40); RED CELL DISTRIBUTION WIDTH 16.3 % (11.5-14.5); WHITE BLOOD COUNT 9.6 x10^3/uL (4.0-11.0)
[2021-11-18 03:49] LABS: CALCIUM 8.7 mg/dL (8.5-10.1); CREATININE 1.5 mg/dL (0.6-1.0)
[2021-11-18 03:54] LABS: INFLUENZA A PATIENT NEGATIVE (NEGATIVE); INFLUENZA B PATIENT NEGATIVE (NEGATIVE)
[2021-11-18 03:55] LABS: ALBUMIN 3.5 g/dL (3.4-5.0); ALBUMIN/GLOBULIN RATIO 0.9 (1.0-1.7); TOTAL BILIRUBIN 0.6 mg/dL (0.2-1.0); TOTAL PROTEIN 7.3 g/dL (6.4-8.2)
[2021-11-18] MEDS ORDERED: ASPIRIN CHEWABLE 81 MG TABLET. PO ONE (04:15)
--- NOTE | 2021-11-18 04:26 | PHYS DOC ---
Past Medical History Past Medical History: CHF, COPD, Hypertension Additional Past Medical Histor: LBBB, Meth use Past Surgical History: Tubal ligation, Other Additional Past Surgical Histo: ANKLE SURGERY Smoking Status: Current Every Day Smoker Alcohol Use: None Drug Use: Marijuana, Methamphetamine Adult General Chief Complaint Chief Complaint: DYSPNEA/RESPIRATORY DISTRESS HPI HPI Patient is a 66 year old female with severe dyspnea has been getting worse today. She has had a wet sounding cough. She has a history of advanced congestive heart failure for which she was on hospice, she revoked her hospice is just today in order to come to the emerge department. She denies any chest pain. No fever she is aware. History is somewhat limited given the degree of her respiratory distress. Review of Systems Review of Systems Unobtainable secondary to patient's respiratory distress Current Medications Current Medications Current Medications Medications (Trade) Dose Ordered Sig/James Start Time Stop Time Status Last Admin Dose Admin Albuterol/ Ipratropium (Duoneb) 3 ml 1X ONCE 11/18/21 03:00 11/18/21 03:01 DC Aspirin (Aspirin Chewable) 324 mg 1X ONCE 11/18/21 04:15 11/18/21 04:16 DC Nitroglycerin/ Dextrose 250 ml @ 1.5 mls/hr 1X ONCE 11/18/21 03:00 11/25/21 01:39 11/18/21 03:31 1.5 MLS/HR Allergies Allergies Allergies Coded Allergies Type Severity Reaction Last Updated Verified No Known Drug Allergies 10/15/13 No Physical Exam Physical Exam Constitutional: Well developed, thin female in moderate to severe respiratory distress, non-toxic appearance. HENT: Normocephalic, atraumatic, bilateral external ears normal, mucosa moist, nose normal. Eyes: EOMI, conjunctiva normal, no discharge. Neck: Normal range of motion, supple, no stridor, no meningeal signs. Cardiovascular: Regular rate and rhythm, borderline tachycardic with a rate of 110 Lungs & Thorax: Bilateral wheezes as well as crackles, patient initial respiratory rate was about 30 Abdomen: Soft, no tenderness or obvious masses Skin: Warm, dry, no erythema, no rash. Extremities: No tenderness, no cyanosis, no clubbing Neurologic: Alert and oriented, normal motor function, normal sensory function, no focal deficits noted. Psychologic: Patient is very anxious, judgement normal Current Patient Data Vital Signs Vital Signs Date Time Temp Pulse Resp B/P (MAP) Pulse Ox O2 Delivery O2 Flow Rate FiO2 11/18/21 02:49 100 BiPAP/CPAP 11/18/21 02:45 97.0 109 42 137/99 (112) 97.0 Lab Values Laboratory Tests Test 11/18/21 02:53 11/18/21 03:15 11/18/21 03:35 O2 Saturation 99 % (92-99) Arterial Blood pH 7.24 (7.35-7.45) L Arterial Blood pCO2 at Patient Temp 51 mmHg (35-46) H Arterial Blood pO2 at Patient Temp 200 mmHg (65-108) H Arterial Blood HCO3 21 mmol/L (21-28) Arterial Blood Base Excess -6 mmol/L (-3-3) L FiO2 100 White Blood Count 9.6 x10^3/uL (4.0-11.0) Red Blood Count 4.89 x10^6/uL (3.50-5.40) Hemoglobin 13.6 g/dL (12.0-15.5) Hematocrit 43.9 % (36.0-47.0) Mean Corpuscular Volume 90 fL (79-100) Mean Corpuscular Hemoglobin 28 pg (25-35) Mean Corpuscular Hemoglobin Concent 31 g/dL (31-37) Red Cell Distribution Width 16.3 % (11.5-14.5) H Platelet Count 332 x10^3/uL (140-400) Neutrophils (%) (Auto) 63 % (31-73) Lymphocytes (%) (Auto) 27 % (24-48) Monocytes (%) (Auto) 5 % (0-9) Eosinophils (%) (Auto) 4 % (0-3) H Basophils (%) (Auto) 0 % (0-3) Neutrophils # (Auto) 6.1 x10^3/uL (1.8-7.7) Lymphocytes # (Auto) 2.6 x10^3/uL (1.0-4.8) Monocytes # (Auto) 0.5 x10^3/uL (0.0-1.1) Eosinophils # (Auto) 0.4 x10^3/uL (0.0-0.7) Basophils # (Auto) 0.0 x10^3/uL (0.0-0.2) Sodium Level 141 mmol/L (136-145) Potassium Level 4.0 mmol/L (3.5-5.1) Chloride Level 102 mmol/L (98-107) Carbon Dioxide Level 23 mmol/L (21-32) Anion Gap 16 (6-14) H Blood Urea Nitrogen 26 mg/dL (7-20) H Creatinine 1.5 mg/dL (0.6-1.0) H Estimated GFR (Cockcroft-Gault) 35.0 BUN/Creatinine Ratio 17 (6-20) Glucose Level 255 mg/dL (70-99) H Lactic Acid Level 4.5 mmol/L (0.4-2.0) *H Calcium Level 8.7 mg/dL (8.5-10.1) Total Bilirubin 0.6 mg/dL (0.2-1.0) Aspartate Amino Transferase (AST) 45 U/L (15-37) H Alanine Aminotransferase (ALT) 32 U/L (14-59) Alkaline Phosphatase 100 U/L (46-116) Troponin I High Sensitivity 45 ng/L (4-50) Total Protein 7.3 g/dL (6.4-8.2) Albumin 3.5 g/dL (3.4-5.0) Albumin/Globulin Ratio 0.9 (1.0-1.7) L Influenza Type A Antigen Negative (NEGATIVE) Influenza Type B Antigen Negative (NEGATIVE) SARS-CoV-2 Antigen (Rapid) Negative (NEGATIVE) Laboratory Tests 11/18/21 03:15 Laboratory Tests 11/18/21 03:15 EKG EKG Twelve-lead EKG demonstrates a sinus rhythm with a rate of 106. She has a left bundle branch block present with a QRS duration of 124 ms. OH and QT corrected are 116 and [address]. [address] segment elevation though she does have borderline depression in V5 and V6 with inverted T waves in V6. No old EKG available for comparison at this time. [] Radiology/Procedures Radiology/Procedures PATIENT: MARIELY WALTEROUNT: [id number]#: [id number] : 1955 LOCATION: ER AGE: 66 SEX: F EXAM STATUS: PRE ER ORD. PHYSICIAN: RASHAUN MAN MD REASON: dyspnea PROCEDURE: CHEST AP ONLY XR CHEST 1V INDICATION: dyspnea COMPARISON STUDY: 10/02/2021. FINDINGS: Lungs: Normal lung volume. Bilateral perihilar and basilar heterogeneous opacities. Pleura: No pleural effusion or pneumothorax. Heart and Mediastinum: Cardiomegaly. Atherosclerosis of the thoracic aorta. IMPRESSION: Bilateral perihilar and basilar opacities, likely pulmonary edema or multifocal infection. Electronically signed by: Tylor Card MD (11/18/2021 3:20 AM) [facility] DICTATED and SIGNED BY: TYLOR CARD MD DATE: 11/18/21 [id number] 0[] Course & Med Decision Making Course & Med Decision Making Pertinent Labs and Imaging studies reviewed. (See chart for details) [] This is a 66-year-old female who presents in respiratory distress. Chest x- ray is indicative of pulmonary edema or CHF exacerbation. Patient was started on a nitro drip and BiPAP. We have also given her aspirin and Lasix. Over the last hour and a half she has improved and is not nearly as air hungry. Her sats have been in the 90s and on her blood gas PO2 was 200 with a CO2 of 51 and a pH of 7.237. At this point will keep her in the hospital for further management, she is in guarded condition. Dragon Disclaimer Dragon Disclaimer This electronic medical record was generated, in whole or in part, using a voice recognition dictation system. Departure Departure Impression: Primary Impression: CHF (congestive heart failure) Disposition: ADMITTED INPATIENT Condition: GUARDED Referrals: JUANA QUINTANA MD (PCP) Scripts No Active Prescriptions or Reported Meds RASHAUN MAN MD Nov 18, 2021 04:26
[2021-11-18] MEDS ORDERED: FUROSEMIDE 40 MG/4 ML VIAL. IVP ONE (04:30)
--- NOTE | 2021-11-18 07:58 | NUR ---
The patient, MARIELY WALTER, 66 y/o, F admitted by JUDD SKELTON MD, was given written information regarding hospital policies, unit procedures and contact persons, valuables were checked and documented. call light in reach pt on 5l n.c. will cont to monitor pt status and safet
[2021-11-18] MEDS ORDERED: FURO40TA4 PO (08:34)
[2021-11-18] MEDS ORDERED: ATOR10TA60 PO (08:34)
[2021-11-18] MEDS ORDERED: CARV3.123 PO (08:34)
--- NOTE | 2021-11-18 09:09 | PDOC1 ---
History and Physical Date of Service: DOS: DATE: 11/18/21 TIME: 09:06 Chief Complaint: Chief Complain: Shortness of breath History of Present Illness: HPI: 66 year old female with severe dyspnea has been getting worse today. She has had a wet sounding cough. She has a history of advanced congestive heart failure for which she was on hospice, she revoked her hospice is just today in order to come to the emerge department. She denies any chest pain. No fever she is aware. History is somewhat limited given the degree of her respiratory distress. At this time upon my encounter patient wanted everything to be done including being full code and she wants to not be short of breath. Past Medical/Surgical History: PMH/PSH: Past Medical History: CHF, COPD, Hypertension,LBBB, Meth use Past Surgical History: Tubal ligation, ANKLE SURGERY Allergies: Allergies: Coded Allergies: tramadol (Verified Allergy, Unknown, Itching, 11/18/21) Family History: Family History: Reviewed with no relevant findings in the chart Social History: Social History: Smoking Status: Current Every Day Smoker Alcohol Use: None Drug Use: Marijuana, Methamphetamine Current Medications: Current Medications Current Medications Albuterol/ Ipratropium (Duoneb) 3 ml 1X ONCE NEB Last administered on 11/18/21at 03:00; Start 11/18/21 at 03:00; Stop 11/18/21 at 03:01; Status DC Nitroglycerin/ Dextrose 250 ml @ 1.5 mls/hr 1X ONCE IV Last administered on 11/18/21at 03:31; Start 11/18/21 at 03:00; Stop 11/25/21 at 01:39 Aspirin (Aspirin Chewable) 324 mg 1X ONCE PO Last administered on 11/18/21at 04:15; Start 11/18/21 at 04:15; Stop 11/18/21 at 04:16; Status DC Furosemide (Lasix) 80 mg 1X ONCE IVP Last administered on 11/18/21at 06:39; Start 11/18/21 at 04:30; Stop 11/18/21 at 04:31; Status DC Active Scripts Active Reported Furosemide 40 Mg Tablet 1 Tab PO QAM Carvedilol 3.125 Mg Tablet 1 Tab PO BID Atorvastatin Calcium 10 Mg Tablet 1 Tab PO DAILY ROS: Review of Systems Review of System REVIEW OF SYSTEMS: GENERAL: Denies weakness SKIN: No bruising, hair changes or rashes. EYES: No blurred, double or loss of vision. NOSE AND THROAT: No history of nosebleeds, hoarseness or sore throat. HEART: No history of palpitations, chest pain or shortness of breath on exertion. LUNGS: Denies cough, hemoptysis, wheezing or shortness of breath. GASTROINTESTINAL: Denies changes in appetite, nausea, vomiting, diarrhea or constipation. GENITOURINARY: No history of frequency, urgency, hesitancy or nocturia. NEUROLOGIC: Denies history of numbness, tingling, or tremor. PSYCHIATRIC: No history of panic, anxiety or depression. ENDOCRINE: No history of heat or cold intolerance, polyuria or polydipsia. EXTREMITIES: Denies joint pain, pain on walking or stiffness. Physical Exam: Vital Signs: Vital Signs Date Time Temp Pulse Resp B/P (MAP) Pulse Ox O2 Delivery O2 Flow Rate FiO2 11/18/21 08:00 Nasal Cannula 5.0 11/18/21 06:06 76 107/67 (80) 98 11/18/21 05:19 98.5 22 98.5 Physcial Exam: GEN: No apparent distress. Alert and oriented HEENT: Normal cephalic, atraumatic, external auditory canals are patent EYES: Extraocular muscles are intact, pupil are equally round and reactive to light and accommodation MUSCULOSKELETAL: Well developed , well nourished, good range of motion ENDOCRINE: No thyromegaly was palpated LYMPHATICS: No cervical chain or axillary nodes were noted HEMATOPOIETIC: No bruising NECK: Supple, no JVD, no thyromegaly was noted LUNGS: Clear to auscultation in all lung eugene without rhonchi or wheezing HEART: RRR, S!, S2 present. Peripheral pulses intact, no obvious murmurs noted ABDOMEN: Soft, nontender. Positive bowel sounds, no organomegaly, normal bowel sounds EXTREMITIES: Without clubbing, cyanosis, or edema. Pedal pulses intact. Negative Homans sign NEUROLOGIC: Normal speech and tone. A&O x 3, moves all extremities, no obvious focal deficits PSYCHIATRIC: Normal affect, normal mood. Stable SKIN: No ulcerations or rashes, good skin turgor, no jaundice VASCULAR: Good capillary refill, neurovascular bundle appears to be intact Labs: Labs: Laboratory Tests Test 11/18/21 02:53 11/18/21 03:15 11/18/21 03:35 O2 Saturation 99 % (92-99) Arterial Blood pH 7.24 (7.35-7.45) Arterial Blood pCO2 at Patient Temp 51 mmHg (35-46) Arterial Blood pO2 at Patient Temp 200 mmHg (65-108) Arterial Blood HCO3 21 mmol/L (21-28) Arterial Blood Base Excess -6 mmol/L (-3-3) FiO2 100 White Blood Count 9.6 x10^3/uL (4.0-11.0) Red Blood Count 4.89 x10^6/uL (3.50-5.40) Hemoglobin 13.6 g/dL (12.0-15.5) Hematocrit 43.9 % (36.0-47.0) Mean Corpuscular Volume 90 fL (79-100) Mean Corpuscular Hemoglobin 28 pg (25-35) Mean Corpuscular Hemoglobin Concent 31 g/dL (31-37) Red Cell Distribution Width 16.3 % (11.5-14.5) Platelet Count 332 x10^3/uL (140-400) Neutrophils (%) (Auto) 63 % (31-73) Lymphocytes (%) (Auto) 27 % (24-48) Monocytes (%) (Auto) 5 % (0-9) Eosinophils (%) (Auto) 4 % (0-3) Basophils (%) (Auto) 0 % (0-3) Neutrophils # (Auto) 6.1 x10^3/uL (1.8-7.7) Lymphocytes # (Auto) 2.6 x10^3/uL (1.0-4.8) Monocytes # (Auto) 0.5 x10^3/uL (0.0-1.1) Eosinophils # (Auto) 0.4 x10^3/uL (0.0-0.7) Basophils # (Auto) 0.0 x10^3/uL (0.0-0.2) Sodium Level 141 mmol/L (136-145) Potassium Level 4.0 mmol/L (3.5-5.1) Chloride Level 102 mmol/L (98-107) Carbon Dioxide Level 23 mmol/L (21-32) Anion Gap 16 (6-14) Blood Urea Nitrogen 26 mg/dL (7-20) Creatinine 1.5 mg/dL (0.6-1.0) Estimated GFR (Cockcroft-Gault) 35.0 BUN/Creatinine Ratio 17 (6-20) Glucose Level 255 mg/dL (70-99) Lactic Acid Level 4.5 mmol/L (0.4-2.0) Calcium Level 8.7 mg/dL (8.5-10.1) Total Bilirubin 0.6 mg/dL (0.2-1.0) Aspartate Amino Transf (AST/SGOT) 45 U/L (15-37) Alanine Aminotransferase (ALT/SGPT) 32 U/L (14-59) Alkaline Phosphatase 100 U/L (46-116) Troponin I High Sensitivity 45 ng/L (4-50) Total Protein 7.3 g/dL (6.4-8.2) Albumin 3.5 g/dL (3.4-5.0) Albumin/Globulin Ratio 0.9 (1.0-1.7) Influenza Type A Antigen Negative (NEGATIVE) Influenza Type B Antigen Negative (NEGATIVE) SARS-CoV-2 Antigen (Rapid) Negative (NEGATIVE) Laboratory Tests Test 11/18/21 02:53 11/18/21 03:15 11/18/21 03:35 O2 Saturation 99 % (92-99) Arterial Blood pH 7.24 (7.35-7.45) Arterial Blood pCO2 at Patient Temp 51 mmHg (35-46) Arterial Blood pO2 at Patient Temp 200 mmHg (65-108) Arterial Blood HCO3 21 mmol/L (21-28) Arterial Blood Base Excess -6 mmol/L (-3-3) FiO2 100 White Blood Count 9.6 x10^3/uL (4.0-11.0) Red Blood Count 4.89 x10^6/uL (3.50-5.40) Hemoglobin 13.6 g/dL (12.0-15.5) Hematocrit 43.9 % (36.0-47.0) Mean Corpuscular Volume 90 fL (79-100) Mean Corpuscular Hemoglobin 28 pg (25-35) Mean Corpuscular Hemoglobin Concent 31 g/dL (31-37) Red Cell Distribution Width 16.3 % (11.5-14.5) Platelet Count 332 x10^3/uL (140-400) Neutrophils (%) (Auto) 63 % (31-73) Lymphocytes (%) (Auto) 27 % (24-48) Monocytes (%) (Auto) 5 % (0-9) Eosinophils (%) (Auto) 4 % (0-3) Basophils (%) (Auto) 0 % (0-3) Neutrophils # (Auto) 6.1 x10^3/uL (1.8-7.7) Lymphocytes # (Auto) 2.6 x10^3/uL (1.0-4.8) Monocytes # (Auto) 0.5 x10^3/uL (0.0-1.1) Eosinophils # (Auto) 0.4 x10^3/uL (0.0-0.7) Basophils # (Auto) 0.0 x10^3/uL (0.0-0.2) Sodium Level 141 mmol/L (136-145) Potassium Level 4.0 mmol/L (3.5-5.1) Chloride Level 102 mmol/L (98-107) Carbon Dioxide Level 23 mmol/L (21-32) Anion Gap 16 (6-14) Blood Urea Nitrogen 26 mg/dL (7-20) Creatinine 1.5 mg/dL (0.6-1.0) Estimated GFR (Cockcroft-Gault) 35.0 BUN/Creatinine Ratio 17 (6-20) Glucose Level 255 mg/dL (70-99) Lactic Acid Level 4.5 mmol/L (0.4-2.0) Calcium Level 8.7 mg/dL (8.5-10.1) Total Bilirubin 0.6 mg/dL (0.2-1.0) Aspartate Amino Transf (AST/SGOT) 45 U/L (15-37) Alanine Aminotransferase (ALT/SGPT) 32 U/L (14-59) Alkaline Phosphatase 100 U/L (46-116) Troponin I High Sensitivity 45 ng/L (4-50) Total Protein 7.3 g/dL (6.4-8.2) Albumin 3.5 g/dL (3.4-5.0) Albumin/Globulin Ratio 0.9 (1.0-1.7) Influenza Type A Antigen Negative (NEGATIVE) Influenza Type B Antigen Negative (NEGATIVE) SARS-CoV-2 Antigen (Rapid) Negative (NEGATIVE) Images: Images PROCEDURE: CHEST AP ONLY XR CHEST 1V INDICATION: dyspnea COMPARISON STUDY: 10/02/2021. FINDINGS: Lungs: Normal lung volume. Bilateral perihilar and basilar heterogeneous opacities. Pleura: No pleural effusion or pneumothorax. Heart and Mediastinum: Cardiomegaly. Atherosclerosis of the thoracic aorta. IMPRESSION: Bilateral perihilar and basilar opacities, likely pulmonary edema or multifocal infection. Assessment/Plan Assessment/Plan Acute hypoxic respiratory failure secondary since his CHF exacerbation Acute on chronic CHF exacerbation JUAQUIN due to vasomotor nephropathy Elevated BNP due to acute volume overload Lactic acidosis History of polysubstance abuse Admit to hospitalist service for further management Resume home CHF medications as much as blood pressure can allow her IV Lasix diuresis as needed Strict I's/O Monitor urine output closely Consider hospice evaluation again if patient agrees O2 supplementation to maintain O2 saturations greater than 90% Lovenox for DVT prophylaxis Protonix GI prophylaxis ADA diet CODE STATUS assumed full code Discussed with RN and SW Disposition inpatient management as above DPOA: Undesignated Justifications for Admission Other Justification ROSSY READ MD Nov 18, 2021 09:09
--- NOTE | 2021-11-18 11:58 | EKG ---
[facility] [address] [place] [address] Test Date: 2021-11-18 Test Time: 03:23:13 Pat Name: MARIELY WALTER Department: Room: [facility] Gender: F Vp Respiratory: : 1955 Requested By: RASHAUN MAN Order Number: [id number] Reading MD: Dale Jacobson Measurements Intervals [place] Rate: 106 P: 204 FL: 132 QRS: 34 QRSD: 124 T: 14 QT: 378 QTc: 504 Interpretive Statements SINUS TACHYCARDIA LOW LIMB LEAD VOLTAGE LEFT BUNDLE BRANCH BLOCK ABNORMAL ECG Electronically Signed On 11-20-2021 14:01:22 SENIOR FORMULATION SCIENTIST by Dale Jacobson
--- NOTE | 2021-11-18 12:29 | NUR ---
At this time, found paraphernalia in pts purse that son brought up to her. MD and industrial gas servicer supervisor notified. Called security, security came and retrieved white crystal like substance, 1 BIC kindergarten instructional assistant with push pin in the bottom, and 1 zippo kindergarten instructional assistant. Disposal not done d/t security needing it to notify the [employer].
--- NOTE | 2021-11-18 13:28 | NUR ---
SS following for discharge planning. SS reviewed pt chart and discussed with pt RN. Pt is from home and is currently requiring oxygen at five liters nasal canula. COVID19 negative. Pt was on services with [facility], ; fax [phone], and revoked to come to the hospital. [facility] agreeable to take pt back on services if discharged to home with hospice. SS will continue to follow for discharge planning. Addendum: 11/18/21 at 1551 by TRACI IVEY SS Clinical updates phoned and faxed to [facility].
[2021-11-18] MEDS: CARVEDILOL 3.125 MG TABLET. PO SCH (17:00)
[2021-11-18] MEDS ORDERED: DEXTROSE 50% 25 GM / 50ML DISP.SYRIN. IV PRN (18:15)
[2021-11-18] MEDS ORDERED: LORazepam 0.5 MG TABLET PO PRN (18:15)
[2021-11-18] MEDS ORDERED: diphenhydrAMINE HCL 25 MG CAPSULE PO PRN ×2 (18:15)
[2021-11-18] MEDS ORDERED: diphenhydrAMINE 50 MG/ML VIAL IVP PRN (18:15)
[2021-11-18] MEDS ORDERED: DOCUSATE SODIUM 100 MG CAPSULE. PO PRN (18:15)
[2021-11-18] MEDS ORDERED: ONDANSETRON PF 4 MG/2 ML VIAL. IVP PRN (18:15)
[2021-11-18] MEDS ORDERED: PROCHLORPERAZINE 10 MG/2 ML VIAL. IV PRN (18:15)
[2021-11-18] MEDS ORDERED: ACETAMINOPHEN 325 MG TABLET. PO PRN (18:15)
[2021-11-18] MEDS ORDERED: ZOLPIDEM 5 MG TABLET. PO PRN (18:15)
[2021-11-18] MEDS ORDERED: SENNOSIDES 8.6 MG TABLET PO PRN (18:15)
[2021-11-19 02:55] VITALS: BP 112/73
[2021-11-19 05:50] LABS: AMPHETAMINE/METHAMPHETAMINE POS (NEG); BARBITURATES NEG (NEG); BENZODIAZEPINES POS (NEG); CANNABINOIDS NEG (NEG); COCAINE NEG (NEG); METHADONE NEG (NEG); OPIATES NEG (NEG)
[2021-11-19 05:53] LABS: PHENCYCLIDINE POS (NEG)
[2021-11-19 07:00] VITALS: BP 91/61
[2021-11-19] MEDS: CARVEDILOL 3.125 MG TABLET. PO SCH (08:00)
[2021-11-19] MEDS ORDERED: ENOXAPARIN 30 MG/0.3 ML SYRINGE. SQ SCH (09:00)
[2021-11-19 11:00] VITALS: BP 109/71
--- NOTE | 2021-11-19 12:00 | NUR ---
Patient left AMA, was explained the risks and told that Dr. Ogden was on the floor and would be in to see her shortly she stated she didn't want to wait. Security was notified and patient escorted to son's truck.
--- NOTE | 2021-11-19 13:52 | PDOC3 ---
[facility]-Discharge Summary Date of Admission: Date of Admission: Nov 18, 2021 Date of Discharge: Date of Discharge: Nov 19, 2021 Discharge Diagnosis: Discharge Diagnosis: Assessment/Plan Acute hypoxic respiratory failure secondary since his CHF exacerbation Acute on chronic CHF exacerbation JUAQUIN due to vasomotor nephropathy Elevated BNP due to acute volume overload Lactic acidosis History of polysubstance abuse Hospital Course: Hospital Course: 66 year old female with severe dyspnea has been getting worse today. She has had a wet sounding cough. She has a history of advanced congestive heart failure for which she was on hospice, she revoked her hospice is just today in order to come to the emerge department. She denies any chest pain. No fever she is aware. History is somewhat limited given the degree of her respiratory distress. At this time upon my encounter patient wanted everything to be done including being full code and she wants to not be short of breath. I have recommended hospice for her again and to abstain from drug abuse. Patient left AGAINST MEDICAL ADVICE Activity: Activity: Resume previous activity Medications: Home Meds Reported Medications Furosemide (FUROSEMIDE) 40 Mg Tablet, 1 TAB PO QAM for chf 11/18/21 Carvedilol (Carvedilol) 3.125 Mg Tablet, 1 TAB PO BID for htn/chf 11/18/21 Atorvastatin Calcium (ATORVASTATIN CALCIUM) 10 Mg Tablet, 1 TAB PO DAILY for high cholesterol 11/18/21 Scheduled Atorvastatin Calcium (Atorvastatin Calcium), 1 TAB PO DAILY, (Reported) Carvedilol (Carvedilol), 1 TAB PO BID, (Reported) Furosemide (Furosemide), 1 TAB PO QAM, (Reported) Total Time: Total Time: Total time spent was 33 minutes in preparing scripts, discharge planning with SWI and RN and preparing this discharge summary Patient seen and examined on day of discharge. No acute abnormal findings. Justicifation of Admission Dx: Justifications for Admission: Justification of Admission Dx: Yes ROSSY READ MD Nov 19, 2021 13:52
== END 2021-11-19 12:00 | disposition left against medical advice (07) | DRG 682 ==
LOC: ER 02:42 → 6 SOUTH 04:21
PROVIDERS: ADMIT Internal Medicine; ATTEND Internal Medicine
PROC: 5A09357 Assistance with Respiratory Ventilation, Less than 24 Consecutive Hours, Continuous Positive Airway Pressure (ICD-10-PCS; principal; 2021-11-18)
DX: N17.0 Acute kidney failure with tubular necrosis (principal); J96.01 Acute respiratory failure with hypoxia; E87.2 Acidosis; I11.0 Hypertensive heart disease with heart failure; I50.9 Heart failure, unspecified; J44.9 Chronic obstructive pulmonary disease, unspecified; Z53.29 Procedure and treatment not carried out because of patient's decision for other reasons; Z98.51 Tubal ligation status; F17.200 Nicotine dependence, unspecified, uncomplicated; F12.90 Cannabis use, unspecified, uncomplicated; Z88.8 Allergy status to other drugs, medicaments and biological substances
CPT/HCPCS: 36415; 36600; 71045; 80053; 80307; 82805; 82962; 83605; 83880; 84484; 85025; 87040; 87428; 93005; 94640; 94660; 94760; 96365; J1650; J1940; J2060; J3490; 99285-25; G0378